=== PATIENT | male | born 1945 | race Caucasian/White ===

== ENCOUNTER 2023-05-03 06:19 | Day surgery (SDC) | payer OTHER ==
[2023-04-29 10:25] LABS: Absolute Basophils 0.1 K/uL (0-0.5); Absolute Lymphocytes (CBC) 0.4 K/uL (0.7-4.9); Basophils % 0.7 % (0-1.3); Eosinophils % 0.5 % (0-4.4); Hematocrit 43.5 % (39.6-49.0); Hemoglobin 14.7 g/dL (13.6-17.9); Lymphocytes % 5.6 % (15.3-44.8); MCV 102.8 fL (80-100); MPV 7.9 fL (7.6-11.3); Platelets 182 thou/uL (152-406); RBC Red Blood Cell Count 4.23 M/uL (4.33-5.43)
[2023-04-29 10:38] LABS: Protime INR 1.84
[2023-04-29 10:45] LABS: Anion Gap 9.3 mEq/L (5.0-15.0)
[2023-04-29 10:46] LABS: Potassium 5.3 mEq/L (3.5-5.1)
--- NOTE | 2023-04-29 11:47 | RAD REPORT ---
EXAM DESCRIPTION: RAD - Chest Pa And Lat (2 Views) - 04/29/2023 9:31 am CLINICAL HISTORY: Pre op pending carotid angiogram. Hypertension COMPARISON: Chest Single View dated 05/18/2016; Chest Pa And Lat (2 Views) dated 02/12/2016; CHEST PA AND LAT 2 VIEW dated 05/08/2014; CHEST SINGLE VIEW dated 04/30/2014 TECHNIQUE: PA and lateral views of the chest were obtained. FINDINGS: The lungs are clear. Heart size is normal and central vasculature is within normal limits. No pleural effusion or pneumothorax seen. No acute bony finding noted. IMPRESSION: No acute cardiopulmonary process.
--- NOTE | 2023-04-29 14:24 | EKG ---
Test Date: 2023-04-29 Test Time: 10:31:17 [place]: [place] MEASUREMENT RESULTS: Intervals: Rate: 70 NM: QRSD: 82 QT: 400 QTc: 432 [place]: P: NM: QRS: 50 T: -30 INTERPRETIVE STATEMENTS: Atrial fibrillation Septal infarct, age undetermined Abnormal ECG Compared to ECG 05/19/2016 07:04:40 Myocardial infarct finding now present Ventricular premature complex(es) no longer present Electronically Signed On 04-29-23 14:24:06 SENIOR CLERK by Santosh Camara
[2023-05-03 07:08] LABS: Protime INR 1.16
[2023-05-03] MEDS ORDERED: NA CHLORIDE 0.9% 500 ML ONE (07:12)
[2023-05-03] MEDS ORDERED: HEPA 1000U/500MLS 2,000 UNIT/1,000 ML BAG IV ONE (07:45)
[2023-05-03] MEDS ORDERED: LIDOCAINE 1% 20 ML MDV ONE (07:45)
[2023-05-03] MEDS ORDERED: FENTANYL CITR 100 MCG/2 ML ONE (07:46)
[2023-05-03] MEDS ORDERED: MIDAZOLAM HCL 2 MG/2 ML INJ ONE (07:46)
[2023-05-03 11:16] VITALS: O2SAT 100
[2023-05-03 11:42] VITALS: BP 170/74
== END 2023-05-03 11:35 | disposition home or self-care (01) ==
LOC: CCL 06:19
PROVIDERS: ATTEND Internal Medicine
DX: I65.21 Occlusion and stenosis of right carotid artery (principal); I48.91 Unspecified atrial fibrillation; I10 Essential (primary) hypertension; E78.5 Hyperlipidemia, unspecified; Z87.891 Personal history of nicotine dependence; Z79.01 Long term (current) use of anticoagulants; Z79.899 Other long term (current) drug therapy
CPT/HCPCS: 93005; 85025; 80048; 36415 ×2; 85610 ×2; 85730 ×2; 71046; 36222; 76937; C1893; J2001; J2250; J3010; J7040; 99152; 99153

== ENCOUNTER 2024-05-26 01:56 | Emergency (ER) | payer OTHER ==
--- OUTSIDE RECORDS SUMMARY | 2024-05-26 02:00 | XMS REPORT | Continuity of Care Document ---
Author Name Unknown Address [address] [facility]. [address] [place] [address] Organization [facility] [place] Address [address] [facility] [address] [place] [address] Care Team Providers Care Service Or Work Dispatcher Chief Name Role Phone [phone] Primary Care Physician Monroe Holguin Attending Clinician Monroe Stallworth Admitting Clinician Jayson andrade Payers Payer Name Policy Type Policy Number Effective Date Expirati on Date Source MEDICARE PART A AND B [id number] 2008 00:00:00 FOR LIFE [id number] 2009 00:00:00 Problems Condition Name Condition Details Condition Category Status Onset Date Resolution Date Last Treatment Date Treating Clinician Comments Source Amnesia (finding) Amnesia (finding) Active Problem 07/11/2020 [facility] Problem Active 2020-07-11 01:48:15 [facility] Atrial fibrillati on (disorder) Atrial fibrillati on (disorder) Active Problem 07/11/2020 [facility] Problem Active 2020-07-11 01:48:15 Mem[facility] jessica Duarte Cervical spondylosi s (disorder) Cervical spondylosi s (disorder) Active Problem 07/11/2020 [facility] Problem Active 2020-07-11 01:48:15 Mem[facility] jessica Duarte Hypertensi ve disorder, systemic arterial (disorder) Hypertensi ve disorder, systemic arterial (disorder) Active Problem 07/11/2020 [facility] Problem Active 2020-07-11 01:48:15 Memoria jessica Duarte Hyperlipid emia (disorder) Hyperlipid emia (disorder) Active Problem 07/11/2020 [facility] Problem Active 2020-07-11 01:48:15 Pretty Duarte Paresthesi a (finding) Paresthesi a (finding) Active Problem 07/11/2020 [facility] Problem Active 2020-07-11 01:48:15 Pretty Duarte Simple obesity (disorder) Simple obesity (disorder) Active Problem 07/11/2020 [facility] Problem Active 2020-07-11 01:48:15 Pretty Duarte Peripheral nerve disease (disorder) Peripheral nerve disease (disorder) Active Problem 07/11/2020 [facility] Problem Active 2020-07-11 01:48:15 Pretty Duarte Allergies, Adverse Reactions, Alerts Allergy Name Allergy Type Status Severity Reaction(s) Onset Date Inactive Date Treating Clinician Comments Source No Known Allergie s DA Active U 05-19 00:00: 00 [facility] Social History Social Habit Start Date Stop Date Quantity Comments Source Social History 2019-11-20 14:52:45 2019-11-20 14:52:[facility] Ordered Medication Name Filled Medication Name Start Date Stop Date Current Medication? Ordering Clinician Indication Dosage Frequency Signature (SIG) Comments Components Source Vitamin B12 07-08 14:01: 00 Yes 0 Refill(s) Pretty Duarte Thyroxine 2019-02 00:03: 00 Yes Daily, 0 Refill(s) Pretty Duarte atorvastati n-ezetimibe 40 mg-10 mg oral tablet 11-19 13:54: 00 Yes 0 Refill(s) Pretty Duarte valsartan 160 MG Oral Tablet [Diovan] 11-19 13:54: 00 Yes 160 mg = 1 tab, PO, Daily, 0 Refill(s) Pretty Duarte allopurinol 300 mg oral tablet 11-19 13:54: 00 Yes 300 mg = 1 tab, PO, Daily, 0 Refill(s) Pretty Duarte rivaroxaban 20 MG Oral Tablet [Xarelto] 11-19 13:54: 00 Yes 20 mg = 1 tab, PO, QPM, 0 Refill(s) Pretty Duarte 24 HR Metoprolol Tartrate 50 MG Extended Release Tablet [Toprol] 11-19 13:54: 00 Yes 50 mg = 1 tab, PO, Daily, 0 Refill(s) Pretty Duarte Vital Signs Vital Name Observation Time Observation Value Comments S ource Diastolic (mm Hg) 2020-07-08 14:00:00 [facility] Heart Rate 2020-07-08 14:00:00 [facility] Respitory Rate 2020-07-08 14:00:00 [facility] Height 2020-07-08 14:00:00 170.18 cm [facility] Weight 2020-07-08 14:00:00 [facility] BMI Calculated 2020-07-08 14:00:00 [facility] Systolic (mm Hg) 2020-07-08 14:00:00 [facility] Systolic (mm Hg) 2020-01-08 14:24:00 [facility] Diastolic (mm Hg) 2020-01-08 14:24:00 [facility] [place] Heart Rate 2020-01-08 14:24:00 [facility] [place] Respitory Rate 2020-01-08 14:24:00 [facility] Height 2020-01-08 14:24:00 172.72 cm [facility] [place] Weight 2020-01-08 14:24:00 [facility] [place] BMI Calculated 2020-01-08 14:24:00 [facility] [place] Systolic (mm Hg) 2019-12-18 14:04:00 [facility] Diastolic (mm Hg) 2019-12-18 14:04:00 [facility] [place] Heart Rate 2019-12-18 14:04:00 [facility] Respitory Rate 2019-12-18 14:04:00 [facility] [place] Height 2019-12-18 14:04:00 172.72 cm [facility] [place] Weight 2019-12-18 14:04:00 [facility] [place] BMI Calculated 2019-12-18 14:04:00 [facility] Height 2019-11-20 14:44:00 172.72 cm [facility] Weight 2019-11-20 14:44:00 [facility] BMI Calculated 2019-11-20 14:44:00 [facility] [place] Procedures Procedure Date / Time Performed Performing Clinicia n Source [id number] 2023-05-24 00:00:[address] [facility] [id number] 2023-05-23 00:00:[address] [facility] Encounters Start Date/Time End Date/Time Encounter Type Admission Type Attending Clinicians Care Facility Care Department Encounter ID Source 2021-04-02 18:19:41 Outpatient MDA MDA [id number] MD Mary quinonez 2021-04-02 18:19:41 Outpatient MDA MDA [id number] MD Mary quinonez 2023-05-23 19:56:00 2023-05-25 10:18:00 Inpatient Monroe Flannery HCACL INTE [id number] [facility] Results Test Description Test Time Test Comments Results Result Co mments Source BASIC METABOLIC [id number] 07:02:00* Test Item Value Reference Range Interpretation Comme nts SODIUM (test code = NA) 136 mEq/L 134-147 N POTASSIUM (test code = K) 4.0 mEq/L 3.4-5.0 N CHLORIDE (test code = CL) 105 mEq/L 100-108 N CARBON DIOXIDE (test code = CO2) 23 mEq/l 21-33 N ANION GAP (test code = GAP) 12 0-20 N GLUCOSE (test code = GLU) 97 mg/dL 77-141 BLOOD UREA NITROGEN (test code = BUN) 19 mg/dL 7-25 N GLOMERULAR FILTRATION RATE (test code = GFR) 76.1 70-80 N The Glomerular Filtration Rate is a calculated parameterbased on serum Creatinine, patient age and sex. GFR valuesless than 60 mL/min/1.73 square meters are indicative ofChronic Kidney Disease. Values less than 15 mL/min/1.73square meters indicate Kidney failure. The calculation forGFR is based on the CKD-EPI (2020) calculation. This formulais race indifferent and is the recommended formula for GFRby the National Kidney Foundation for Adults.The GFR will not calculate if the sex is unknown or if thepatient's age is <18 years. CREATININE (test code = CREAT) 1.0 mg/dL 0.6-1.3 N CALCIUM (test code = CA) 8.5 mg/dL 8.0-10.5 N [id number] 07:02:00* Test Item Value Reference Range Interpretation Comme nts PHOSPHOROUS (test code = PHOS) 3.6 MG/DL 2.5-4.9 N [id number] 07:02:00* Test Item Value Reference Range Interpretation Comme nts MAGNESIUM (test code = MAG) 1.83 mg/dL 1.6-2.6 N THYROID STIMULATING [id number] 07:02:00* Test Item Value Reference Range Interpretation Comme nts THYROID STIMULATING HORMONE (test code = TSH) 2.89 0.42-5.47 N Result s in dawna-International Units/mL CALCIUM [id number] 07:02:00* Test Item Value Reference Range Interpretation Comme nts CALCIUM IONIZED (test code = TIN) 1.20 MMOL/L 1.09-1.30 N [id number] 06:12:00* Test Item Value Reference Range Interpretation Comme nts HGBA1C% (test code = HGBA1C%) 5.3 %A1C 4.8-6.0 N CBC W/AUTO [id number] 05:56:00* Test Item Value Reference Range Interpretation Comme nts WHITE BLOOD CELL (test code = WBC) 11.1 x10 3/uL 4.5-11.0 H RED BLOOD CELL (test code = RBC) 3.74 x10 6/uL 4.00-5.60 L HEMOGLOBIN (test code = HGB) 12.7 g/dL 12.5-16.9 N HEMATOCRIT (test code = HCT) 36.4 % 37.5-50.7 L MEAN CELL VOLUME (test code = MCV) 97.3 fL 81.0-99.0 N MEAN CELL HGB (test code = MCH) 34.0 pg 27.0-33.0 H MEAN CELL HGB CONCETRATION (test code = MCHC) 34.9 g/dL 33.0-37.0 N RED CELL DISTRIBUTION WIDTH CV (test code = RDW) 12.6 % 11.5-14.5 N RED CELL DISTRIBUTION WIDTH SD (test code = RDW-SD) 45.0 fL 37.0-54.0 N PLATELET COUNT (test code = PLT) 167 x10 3/uL 150-400 N MEAN PLATELET VOLUME (test c ode = MPV) 9.9 fL 7.0-9.0 H NEUTROPHIL % (test code = NT%) 84.7 % 56.0-77.0 H IMMATURE GRANULOCYTE % (test code = IG%) 0.3 % 0.0-2.0 N LYMPHOCYTE % (test code = LY%) 4.6 % 14.0-32.0 L MONOCYTE % (test code = MO%) 10.2 % 4.8-9.0 H EOSINOPHIL % (test code = EO%) 0.1 % 0.3-3.7 L BASOPHIL % (test code = BA%) 0.1 % 0.0-2.0 N NUCLEATED RBC % (test code = NRBC%) 0.0 % 0-0 N NEUTROPHIL # (test code = NT#) 9.37 x10 3/uL 2.0-7.6 H IMMATURE GRANULOCYTE # (test code = IG#) 0.03 x10 3/uL 0.00-0.03 N LYMPHOCYTE # (test code = LY#) 0.51 x10 3/uL 1.0-3.8 L MONOCYTE # (test code = MO#) 1.13 x10 3/uL 0.1-0.8 H EOSINOPHIL # (test code = EO#) 0.01 x10 3/uL 0.0-0.2 N BASOPHIL # (test code = BA#) 0.01 x10 3/uL 0.0-0.2 N NUCLEATED RBC # (test code = NRBC#) 0.00 x10 3/uL 0.0-0.1 N BASIC METABOLIC [id number] 12:03:00* Test Item Value Reference Range Interpretation Comme nts SODIUM (test code = NA) 138 mEq/L 134-147 N POTASSIUM (test code = K) 3.7 mEq/L 3.4-5.0 N CHLORIDE (test code = CL) 107 mEq/L 100-108 N CARBON DIOXIDE (test code = CO2) 21 mEq/l 21-33 N ANION GAP (test code = GAP) 14 0-20 N GLUCOSE (test code = GLU) 143 mg/dL 77-141 H BLOOD UREA NITROGEN (test code = BUN) 13 mg/dL 7-25 N GLOMERULAR FILTRATION RATE (test code = GFR) 86.3 70-80 H The Glomerular Filtration Rate is a calculated parameterbased on serum Creatinine, patient age and sex. GFR valuesless than 60 mL/min/1.73 square meters are indicative ofChronic Kidney Disease. Values less than 15 mL/min/1.73square meters indicate Kidney failure. The calculation forGFR is based on the CKD-EPI (2021) calculation. This formulais race indifferent and is the recommended formula for GFRby the National Kidney Foundation for Adults.The GFR will not calculate if the sex is unknown or if thepatient's age is <18 years. CREATININE (test code = CREAT) 0.9 mg/dL 0.6-1.3 N CALCIUM (test code = CA) 8.9 mg/dL 8.0-10.5 N HGB [id number] 11:45:00* Test Item Value Reference Range Interpretation Comme nts HEMOGLOBIN (test code = HGB) 14.0 g/dL 12.5-16.9 N HEMATOCRIT (test code = HCT) 40.8 % 37.5-50.7 N BASIC METABOLIC [id number] 09:55:00* Test Item Value Reference Range Interpretation Comme nts SODIUM (test code = NA) 138 mEq/L 134-147 N POTASSIUM (test code = K) 3.8 mEq/L 3.4-5.0 N CHLORIDE (test code = CL) 107 mEq/L 100-108 N CARBON DIOXIDE (test code = CO2) 19 mEq/l 21-33 L ANION GAP (test code = GAP) 16 0-20 N GLUCOSE (test code = GLU) 156 mg/dL 77-141 H BLOOD UREA NITROGEN (test code = BUN) 12 mg/dL 7-25 N GLOMERULAR FILTRATION RATE (test code = GFR) 86.3 70-80 H The Glomerular Filtration Rate is a calculated parameterbased on serum Creatinine, patient age and sex. GFR valuesless than 60 mL/min/1.73 square meters are indicative ofChronic Kidney Disease. Values less than 15 mL/min/1.73square meters indicate Kidney failure. The calculation forGFR is based on the CKD-EPI (202) calculation. This formulais race indifferent and is the recommended formula for GFRby the National Kidney Foundation for Adults.The GFR will not calculate if the sex is unknown or if thepatient's age is <18 years. CREATININE (test code = CREAT) 0.9 mg/dL 0.6-1.3 N CALCIUM (test code = CA) 8.4 mg/dL 8.0-10.5 N HGB [id number] 09:36:00* Test Item Value Reference Range Interpretation Comme nts HEMOGLOBIN (test code = HGB) 13.9 g/dL 12.5-16.9 N HEMATOCRIT (test code = HCT) 40.1 % 37.5-50.7 N [id number] 08:00:00* Test Item Value Reference Range Interpretation Comme nts ACT-ISTAT (test code = ACTI) 336 SEC 74-137 H Performed by cer bernard gripper machine operator at [facility] BASIC METABOLIC [id number] 01:49:00* Test Item Value Reference Range Interpretation Comme nts SODIUM (test code = NA) 138 mEq/L 134-147 N POTASSIUM (test code = K) 3.7 mEq/L 3.4-5.0 N CHLORIDE (test code = CL) 106 mEq/L 100-108 N CARBON DIOXIDE (test code = CO2) 23 mEq/l 21-33 N ANION GAP (test code = GAP) 13 0-20 N GLUCOSE (test code = GLU) 111 mg/dL 77-141 N BLOOD UREA NITROGEN (test code = BUN) 11 mg/dL 7-25 N GLOMERULAR FILTRATION RATE (test code = GFR) 89.5 70-80 H The Glomerular Filtration Rate is a calculated parameterbased on serum Creatinine, patient age and sex. GFR valuesless than 60 mL/min/1.73 square meters are indicative ofChronic Kidney Disease. Values less than 15 mL/min/1.73square meters indicate Kidney failure. The calculation forGFR is based on the CKD-EPI (202) calculation. This formulais race indifferent and is the recommended formula for GFRby the National Kidney Foundation for Adults.The GFR will not calculate if the sex is unknown or if thepatient's age is <18 years. CREATININE (test code = CREAT) 0.8 mg/dL 0.6-1.3 N CALCIUM (test code = CA) 9.3 mg/dL 8.0-10.5 N [id number] 01:49:00* Test Item Value Reference Range Interpretation Comme [facility] PHOSPHOROUS (test code = PHOS) 3.3 MG/DL 2.5-4.9 N [id number] 01:49:00* Test Item Value Reference Range Interpretation Comme [facility] MAGNESIUM (test code = MAG) 1.69 mg/dL 1.6-2.6 N CALCIUM [id number] 01:49:00* Test Item Value Reference Range Interpretation Comme [facility] CALCIUM IONIZED (test code = TIN) 1.18 MMOL/L 1.09-1.30 N PROTHROMBIN [id number] 01:33:00* Test Item Value Reference Range Interpretation Comme [facility] PROTHROMBIN TIME PATIENT (test code = PTP) 12.4 SECONDS 9.3-12.9 N INTERNATIONAL NORMAL RATIO (test code = INR) 1.1 0.8-1.2 N TARGET INR BY INDICATION Indication INR1. Prophylaxis of venous thrombosis 2.0 - 3.0 (orthopedic surgery), Prophylaxis of venous thrombosis (other than high-risk surgery), Treatment of Deep Vein Thrombosis/Pulmonary Embolism, Prevention of systemic embolism - Tissue heart valves, Acute Myocardial Infarction (to prevent systemic embolism), Valvular heart disease, Atrial Fibrillation, Bileaflet mechanical valve in aortic position.2. Mechanical prosthetic valves (high risk), 2.5 - 3.5 Presence of Lupus Anticoagulant or Antiphospholipid Antibodies, Prevention of systemic embolism - Acute Myocardial Infarction (to prevent recurrent infarct). THROMBOPLASTIN TIME [id number] 01:33:00* Test Item Value Reference Range Interpretation [facility] PARTIAL (test code = PTT) 33.4 Seconds 25.0-39.5 N Therapeutic Rang e: 50.4 - 88.3 Seconds Effective 06/13/2018 CBC W/AUTO [id number] 01:24:00* Test Item Value Reference Range Interpretation Comme [facility] WHITE BLOOD CELL (test code = WBC) 9.3 x10 3/uL 4.5-11.0 N RED BLOOD CELL (test code = RBC) 4.39 x10 6/uL 4.00-5.60 N HEMOGLOBIN (test code = HGB) 14.8 g/dL 12.5-16.9 N HEMATOCRIT (test code = HCT) 42.7 % 37.5-50.7 N MEAN CELL VOLUME (test code = MCV) 97.3 fL 81.0-99.0 N MEAN CELL HGB (test code = MCH) 33.7 pg 27.0-33.0 H MEAN CELL HGB CONCETRATION (test code = MCHC) 34.7 g/dL 33.0-37.0 N RED CELL DISTRIBUTION WIDTH CV (test code = RDW) 12.3 % 11.5-14.5 N RED CELL DISTRIBUTION WIDTH SD (test code = RDW-SD) 44.1 fL 37.0-54.0 N PLATELET COUNT (test code = PLT) 193 x10 3/uL 150-400 N MEAN PLATELET VOLUME (test c ode = MPV) 9.8 fL 7.0-9.0 H NEUTROPHIL % (test code = NT%) 85.6 % 56.0-77.0 H IMMATURE GRANULOCYTE % (test code = IG%) 0.2 % 0.0-2.0 N LYMPHOCYTE % (test code = LY%) 5.2 % 14.0-32.0 L MONOCYTE % (test code = MO%) 8.2 % 4.8-9.0 N EOSINOPHIL % (test code = EO%) 0.4 % 0.3-3.7 N BASOPHIL % (test code = BA%) 0.4 % 0.0-2.0 N NUCLEATED RBC % (test code = NRBC%) 0.0 % 0-0 N NEUTROPHIL # (test code = NT#) 7.93 x10 3/uL 2.0-7.6 H IMMATURE GRANULOCYTE # (test code = IG#) 0.02 x10 3/uL 0.00-0.03 N LYMPHOCYTE # (test code = LY#) 0.48 x10 3/uL 1.0-3.8 L MONOCYTE # (test code = MO#) 0.76 x10 3/uL 0.1-0.8 N EOSINOPHIL # (test code = EO#) 0.04 x10 3/uL 0.0-0.2 N BASOPHIL # (test code = BA#) 0.04 x10 3/uL 0.0-0.2 N NUCLEATED RBC # (test code = NRBC#) 0.00 x10 3/uL 0.0-0.1 N GLUCOSE [id number] 21:01:00* Test Item Value Reference Range Interpretation Comme nts GLUCOSE BEDSIDE (test code = GLUBED) 115 MG/DL 70-110 H Performed by keely wagner gripper machine operator at [facility] - XR CHEST 1 [id number] 11:11:00 [facility] 1945 Sex: M FAX: Monroe Bentley MD [phone] [place]: St: REG Name: OSIEL RENO [facility] : 1945 Age/S: 78/M [address] [place] [address] Unit #: [id number] Loc: [place] [address] Phys: Monroe Lobo MD Acct: [id number] Dis Date: Status: REG [facility] PHONE #: [phone] Exam Date: 05/23/2023 1022 FAX #: Reason: PRE PROCEDURE EXAMS: CPT CODE: [id number] XR CHEST 1 V 80515 Clinical Information: Preprocedure evaluation. Dictation Location: A 1 COMPARISON: No prior. FINDINGS: Portable frontal view of the chest taken at 1022 hours semierect shows monitoring electrodes overlying the chest wall. Normal heart size and pulmonary vessels with clear lungs. Mild aortic tortuosity. Degenerative change in the spine and shoulders. No acute bone findings. IMPRESSION: No active disease. at 1111 Reported and signed by: Jamil Dumont M.D. CC: Monroe Lobo MD Technologist: RT Aristeo(R) Trnscrd Date/Time/By: 05/23/2023 (1111) : By: [email or web address] Orig Print D/T: S: 05/23/2023 (1114) PAGE 1 Signed ReportCOMPREHENSIVE METABOLIC [id number] 11:10:00* Test Item Value Reference Range Interpretation Comme nts SODIUM (test code = NA) 140 mEq/L 134-147 N POTASSIUM (test code = K) 4.5 mEq/L 3.4-5.0 N CHLORIDE (test code = CL) 107 mEq/L 100-108 N CARBON DIOXIDE (test code = CO2) 28 mEq/l 21-33 N ANION GAP (test code = GAP) 10 0-20 N GLUCOSE (test code = GLU) 108 mg/dL 77-141 N BLOOD UREA NITROGEN (test code = BUN) 11 mg/dL 7-25 N GLOMERULAR FILTRATION RATE (test code = GFR) 76.1 70-80 N The Glomerular Filtration Rate is a calculated parameterbased on serum Creatinine, patient age and sex. GFR valuesless than 60 mL/min/1.73 square meters are indicative ofChronic Kidney Disease. Values less than 15 mL/min/1.73square meters indicate Kidney failure. The calculation forGFR is based on the CKD-EPI (202) calculation. This formulais race indifferent and is the recommended formula for GFRby the National Kidney Foundation for Adults.The GFR will not calculate if the sex is unknown or if thepatient's age is <18 years. CREATININE (test code = CREAT) 1.0 mg/dL 0.6-1.3 N TOTAL PROTEIN (test code = PROT) 6.9 g/dL 6.4-8.2 N ALBUMIN (test code = ALB) 3.80 g/dL 3.4-5.0 N CALCIUM (test code = CA) 9.4 mg/dL 8.0-10.5 N BILIRUBIN TOTAL (test code = BILT) 1.00 mg/dL 0.0-1.0 N SGOT/AST (test code = AST) 52 IUnit/L 8-34 H SGPT/ALT (test code = ALT) 43 IUnit/L 10-49 N ALKALINE PHOSPHATASE TOTAL (test code = ALKP) 74 IUnit/L 20-125 N LIPID PROFILE (CORONARY RISK)2023-05-23 11:10:00* Test Item Value Reference Range Interpretation Comme nts TRIGLYCERIDES (test code = TRIG) 77 mg/dL 40-150 N CHOLESTEROL (test code = CHOL) 157 mg/dL <200 CHOLESTEROL/HDL RATIO (test code = CHOLHDL) 2.48 RATIO 3.43-4.97 L RISK ASSOCIATED WITH CHOL/HDL RATIOS: RISK MALE FEMALE1/2 AVERAGE 3.43 3.27AVERAGE 4.97 4.442X AVERAGE 9.55 7.053X AVERAGE 23.39 11.04 NOTE THAT THE REFERENCE VALUE IS RELATEDTO RISK LEVELS RECOMMENDED BY THE NATL.HEART, LUNG, AND BLOOD INST. HDL CHOLESTEROL (test code = HDL) 63.2 MG/DL 40-60 H HDL Interpreta tion < 40.0 mg/dL Low (undesirable, high risk)> 60.0 mg/dL High (desirable, low risk) Reference interval for healthy adults was established by theNational Cholesterol Education Program (NCEP). LIPOPROTEIN LDL (test code = LDL) 83.0 mg/dL 0-100 N <100 [id number] 0-129 NEAR OPTIMAL/ABOVE [id number] HIGH>LN=469 VERY HIGH*Guidelines provided by the National Cholesterol EducationProgram Adult Treatment Panel III PROTHROMBIN [id number] 10:40:00* Test Item Value Reference Range Interpretation Comme nts PROTHROMBIN TIME PATIENT (test code = PTP) 12.4 SECONDS 9.3-12.9 N INTERNATIONAL NORMAL RATIO (test code = INR) 1.1 0.8-1.2 N TARGET INR BY INDICATION Indication INR1. Prophylaxis of venous thrombosis 2.0 - 3.0 (orthopedic surgery), Prophylaxis of venous thrombosis (other than high-risk surgery), Treatment of Deep Vein Thrombosis/Pulmonary Embolism, Prevention of systemic embolism - Tissue heart valves, Acute Myocardial Infarction (to prevent systemic embolism), Valvular heart disease, Atrial Fibrillation, Bileaflet mechanical valve in aortic position.2. Mechanical prosthetic valves (high risk), 2.5 - 3.5 Presence of Lupus Anticoagulant or Antiphospholipid Antibodies, Prevention of systemic embolism - Acute Myocardial Infarction (to prevent recurrent infarct). CBC W/AUTO [id number] 10:37:00* Test Item Value Reference Range Interpretation Comme nts WHITE BLOOD CELL (test code = WBC) 7.3 x10 3/uL 4.5-11.0 N RED BLOOD CELL (test code = RBC) 4.24 x10 6/uL 4.00-5.60 N HEMOGLOBIN (test code = HGB) 14.2 g/dL 12.5-16.9 N HEMATOCRIT (test code = HCT) 42.5 % 37.5-50.7 N MEAN CELL VOLUME (test code = MCV) 100.2 fL 81.0-99.0 H MEAN CELL HGB (test code = MCH) 33.5 pg 27.0-33.0 H MEAN CELL HGB CONCETRATION (test code = MCHC) 33.4 g/dL 33.0-37.0 N RED CELL DISTRIBUTION WIDTH CV (test code = RDW) 12.5 % 11.5-14.5 N RED CELL DISTRIBUTION WIDTH SD (test code = RDW-SD) 46.4 fL 37.0-54.0 N PLATELET COUNT (test code = PLT) 197 x10 3/uL 150-400 N MEAN PLATELET VOLUME (test c ode = MPV) 9.7 fL 7.0-9.0 H NEUTROPHIL % (test code = NT%) 82.6 % 56.0-77.0 H IMMATURE GRANULOCYTE % (test code = IG%) 0.1 % 0.0-2.0 N LYMPHOCYTE % (test code = LY%) 6.3 % 14.0-32.0 L MONOCYTE % (test code = MO%) 8.9 % 4.8-9.0 N EOSINOPHIL % (test code = EO%) 1.4 % 0.3-3.7 N BASOPHIL % (test code = BA%) 0.7 % 0.0-2.0 N NUCLEATED RBC % (test code = NRBC%) 0.0 % 0-0 N NEUTROPHIL # (test code = NT#) 6.00 x10 3/uL 2.0-7.6 N IMMATURE GRANULOCYTE # (test code = IG#) 0.01 x10 3/uL 0.00-0.03 N LYMPHOCYTE # (test code = LY#) 0.46 x10 3/uL 1.0-3.8 L MONOCYTE # (test code = MO#) 0.65 x10 3/uL 0.1-0.8 N EOSINOPHIL # (test code = EO#) 0.10 x10 3/uL 0.0-0.2 N BASOPHIL # (test code = BA#) 0.05 x10 3/uL 0.0-0.2 N NUCLEATED RBC # (test code = NRBC#) 0.00 x10 3/uL 0.0-0.1 N Notes Date/Time Note Provider Source 2023-05-25 08:43:00 [facility] ([facility]) Discharge Summary REPORT#:[id number] REPORT STATUS: Signed REPORT INITIALIZATION DATE:05/25/23 TIME: 08 PATIENT: OSIEL RENO UNIT #: [id number] ROOM/BED: [place] [id number] : [birth year] AGE: 78 SEX: M ATTEND: Monroe Lobo MD ADM AUTHOR: Jolly Yanez KELP GATHERER REPT SERVICE DT/TIME: 05/25/23 0843 * ALL edits or amendments must be made on the electronic/computer document * PCP PCP Discharge to: home General Information Discharge date: 05/28/23 Admission diagnosis: Carotid Stenosis Discharge diagnosis: Right CEA Hospital course: 78 y/o male presents with hx of carotid stenosis, atrial fibrillation on Xarelto , HTN, HLD. Patient is status post Right CEA, and has recovered without complication. NENA drain with minimal output and dc'd- patient tolerated well. -DC home, to the care of his son -continue aspirin, Xarelto, Statin -Discharge intructions provided -patient to follow up in post op clinic in 1-2 weeks Patient seen and examined by Dr. Lobo Consultants: critical/community assistant, hospitalist, thoracic surgery Med Rec PCP PCP: PCP: No Primary or Family Physician Med Rec Discharge meds: Continue taking these medications: RIVAROXABAN (XARELTO) (Unknown Strength) TAB Unknown Dose ORAL DAILY. HYDROCHLOROTHIAZIDE (HYDRODIURIL) 25 MG TAB 25 MILLIGRAM ORAL DAILY. LEVOTHYROXINE (SYNTHROID) 75 MCG TAB 75 MICROGRAM ORAL DAILY. MAGNESIUM OXIDE (MAG-OXIDE) 400 MG TAB 400 MILLIGRAM ORAL DAILY. CHOLECALCIFEROL (VITAMIN D3) (VITAMIN D3) 25 MCG (1,000 UNIT) TAB 1,000 UNITS ORAL DIRECTED Comments: PT TAKES 3 TIMES WEEKLY CETIRIZINE (CETIRIZINE) 10 MG TAB 10 MILLIGRAM ORAL DAILY. SIMVASTATIN (SIMVASTATIN) 80 MG TAB 80 MILLIGRAM ORAL DAILY. Start taking the following new medications: ASPIRIN EC (ECOTRIN) 81 MG TAB.EC 81 MILLIGRAM ORAL DAILY. Qty = 90 Refills = 3 Objective VS/I O Last Documented: Result Date Time B/P 145/75 05/25 627 B/P Mean 101 05/25 627 Pulse Ox 100 05/25 627 Pulse 62 05/25 627 Resp 15 05/25 627 Temp 97.5 05/24 0522 O2 Delivery Room air 05/24 2023 O2 Flow Rate 5 05/23 0920 24 hour I O ending at 0700: 05/24 0700 05/23 1900 Intake Total 730.00 290.00 Output Total 210 70 Balance 520.00 220.00 Intake, IV 30.00 50.00 Intake, Oral 700 240 Output, 10 20 Drainage Output, Urine 200 50 Patient 76.4 kg Weight Weight Standing scale Measurement Method PATIENT WEIGHT: Weight (lb): 168 Weight (oz): 6.93 Weight (kg): 76.400 General appearance: alert, awake, oriented, no acute distress Neck: non-tender Cardiovascular: normal capillary refill Respiratory: clear to auscultation, no distress GI: soft, non-tender Genitourinary: no bladder distension, no flank pain Neuro/DEBURRER: alert, oriented X 3 Wound/incision: Location: right neck incision site, CDI Psychiatry: no hallucinations, normal affect, normal judgment/insight Results Findings/Data: Laboratory Tests: 05/24 05/24 05/23 05/23 0413 0413 1125 0911 Chemistry Sodium (134 - 147 mEq/L) 136 138 138 Potassium (3.4 - 5.0 mEq/L) 4.0 3.7 3.8 Chloride (100 - 108 mEq/L) 105 107 107 Carbon Dioxide (21 - 33 mEq/l) 23 21 19 L Anion Gap (0 - 20) 12 14 16 BUN (7 - 25 mg/dL) 19 13 12 Creatinine (0.6 - 1.3 mg/dL) 1.0 0.9 0.9 Glomerular Filtr Rate (70 - 80) 76.1 86.3 H 86.3 H Glucose (77 - 141 mg/dL) 97 143 H 156 H Hemoglobin A1c (4.8 - 6.0 %A1C) 5.3 Calcium (8.0 - 10.5 mg/dL) 8.5 8.9 8.4 Ionized Calcium Jerel (1.09 - 1.30 MMOL/L) 1.20 Phosphorus (2.5 - 4.9 MG/DL) 3.6 Magnesium (1.6 - 2.6 mg/dL) 1.83 TSH (0.42 - 5.47) 2.89 Hematology WBC (4.5 - 11.0 x10 3/uL) 11.1 H RBC (4.00 - 5.60 x10 6/uL) 3.74 L Hgb (12.5 - 16.9 g/dL) 12.7 14.0 13.9 Hct (37.5 - 50.7 %) 36.4 L 40.8 40.1 MCV (81.0 - 99.0 fL) 97.3 MCH (27.0 - 33.0 pg) 34.0 H MCHC (33.0 - 37.0 g/dL) 34.9 RDW (11.5 - 14.5 %) 12.6 Plt Count (150 - 400 x10 3/uL) 167 MPV (7.0 - 9.0 fL) 9.9 H Neut % (Auto) (56.0 - 77.0 %) 84.7 H Lymph % (Auto) (14.0 - 32.0 %) 4.6 L [place] % (Auto) (4.8 - 9.0 %) 10.2 H Eos % (Auto) (0.3 - 3.7 %) 0.1 L Baso % (Auto) (0.0 - 2.0 %) 0.1 Neut # (Auto) (2.0 - 7.6 x10 3/uL) 9.37 H Lymph # (Auto) (1.0 - 3.8 x10 3/uL) 0.51 L [place] # (Auto) (0.1 - 0.8 x10 3/uL) 1.13 H Eos # (Auto) (0.0 - 0.2 x10 3/uL) 0.01 Baso # (Auto) (0.0 - 0.2 x10 3/uL) 0.01 Abs Immat Gran (auto) (0.00 - 0.03 x10 3/uL) 0.03 Immature Gran % (0.0 - 2.0 %) 0.3 Nucleated RBC % (0 - 0 %) 0.0 Nucleated RBCs # (Man) (0.0 - 0.1 x10 3/uL) 0.00 Discharge Instructions PCP PCP: PCP: No Primary or Family Physician )( Discharge to: Home/Self Care Discharge Instructions Additional Discharge Routines: Attending Follow-Up, Wound/Dressing Care )( Diet: Resume Home Diet/Feeds )( Activity: Resume Normal Activity, No Driving today )( Wound/dressing care: Clean wound daily, Do not submerge incision, Keep wound clean and dry, OK to shower tomorrow )( Notify PCP of these S/S: Chest Pain, Increased redness, Increased swelling, Increased tenderness/pain, Moderate/large bleeding, Numbness, Pus-like discharge , Red line from wound, Shortness of breath, Temp. 101 or greater Prescriptions: e-prescribe Follow-up Appointments Attending Physician: Attending Physician: Monroe Lobo MD Attending physician follow up timeframe: In 1-2 weeks Special instructions: Dr. Lobo office will call you to schedule your follow up post op appointment in 1-2 weeks. May remove left neck dressing tomorrow, ok to shower tomorrow evening. Leaving incision and puncture open to air, no dressing, no creams, no lotions. Wash with soap and water- pat dry. at [phone] at [phone] RPT #:[id number] END OF REPORT [facility] 2023-05-24 12:00:00 [facility] ([facility]) Critical Care Progress Note REPORT#:[id number] REPORT STATUS: Signed REPORT INITIALIZATION DATE:05/24/23 TIME: 1200 PATIENT: OSIEL RENO UNIT #: [id number] ROOM/BED: [place] [id number] : 43 AGE: 78 SEX: M ATTEND: Monroe Lobo MD ADM AUTHOR: Scarlet Conner REPT SERVICE DT/TIME: 05/24/23 1200 * ALL edits or amendments must be made on the electronic/computer document * Subjective HPI: 78 M presents for an elective carotid endartectomy and has been postponed till tomorrow 05/23. He has been found to have significant stenosis of the right carotid artery. He has history of atrial fibrillation on elliquis, hypothyroid, hypertension, hyperlipidemia. He denies any neurological deficits. Comments: Back to room 330 from PACU. He is s/p R carotid endaterectomy Neuro intact SBP 130s, NSR 70s Sats well on room air, 98% Objective General VS/I O Last Documented: Result Date Time Pulse Ox 100 05/23 0920 B/P 131/59 05/23 0920 O2 Delivery Simple mask 05/23 0920 O2 Flow Rate 5 05/23 0920 Pulse 62 05/23 0920 Resp 16 05/23 0920 Temp 97.0 05/23 0838 B/P Mean 93 05/23 0600 24 hour I O ending at 0700: 05/23 0700 05/22 1900 Intake Total 200 Output Total 500 Balance -300 Intake, Oral 200 Number Voids 2 Output, Urine 500 Patient 78 kg 79.545 kg Weight Weight Bed scale Stated/Reported Measurement Method PATIENT WEIGHT: Weight (lb): 171 Weight (oz): 15.37 Weight (kg): 78.000 Medications: Active Meds + DC'd Last 24 Hrs Aspirin (ASPIRIN) 81 MG DAILY PO Clopidogrel Bisulfate (Plavix) 75 MG DAILY PO Docusate Sodium (COLACE) 100 MG BID PO Simvastatin (SIMVASTATIN) 80 MG DAILY@2100 PO (CAN) Magnesium Sulfate (MAGNESIUM SULFATE 2GM/SWFI 50ML) 50 ML ONCE ONE IV ( UNV) Dexamethasone Sodium Phosphate (DECADRON) 0 .STK-MED ONE .ROUTE (DC) Lidocaine HCl (XYLOCAINE) 0 .STK-MED ONE .ROUTE (DC) Ondansetron HCl (ZOFRAN) 0 .STK-MED ONE .ROUTE (DC) Propofol (DIPRIVAN 200MG/20ML INJECTION) 20 ML .STK-MED ONE IV (DC) Albuterol/Ipratropium (DUONEB) 3 ML RTONCE ONE NEB (DC) Albuterol/Ipratropium (DUONEB) 0 .STK-MED ONE NEB (DC) Acetaminophen (TYLENOL) 650 MG Q4H PRN PRN PO Bisacodyl (DULCOLAX) 10 MG DAILY PRN PRN RECTAL Hydrochlorothiazide (HYDRODIURIL) 25 MG DAILY PO Hydrocodone Bitart/Acetaminophen (NORCO 5/325) 1 TAB Q4H PRN PRN PO Levothyroxine Sodium (LEVOTHYROXINE SODIUM) 50 MCG DAILY IV (DC) Magnesium Hydroxide (MILK OF MAGNESIA) 30 ML Q6H PRN PRN PO Magnesium Oxide (MAG-OX 400) 400 MG DAILY PO Fentanyl Citrate (SUBLIMAZE) 100 MCG PACU Q10MIN PRN PRN IV Fentanyl Citrate (SUBLIMAZE) 50 MCG PACU Q10MIN PRN PRN IV Hydralazine HCl (APRESOLINE) 5 MG PACU Q10MIN PRN PRN IV Hydrocodone Bitart/Acetaminophen (NORCO 5/325) 1 TAB PACU ONCE PO (CKD) Hydromorphone HCl (DILAUDID) 1 MG PACU Q10MIN PRN PRN IV Hydromorphone HCl (DILAUDID) 0.5 MG PACU Q5MIN PRN PRN IV Insulin Human Lispro (HUMALOG) 0 PACU ONCE PRN SUBQ Labetalol HCl (labetalol) 5 MG PACU Q10MIN PRN PRN IV Meperidine HCl (MEPERIDINE HCL/PF) 12.5 MG PACU ONCE PRN IV Morphine Sulfate (morphine SULFATE) 2 MG PACU Q10MIN PRN PRN IV Ondansetron HCl (ZOFRAN) 4 MG PACU ONCE PRN IV Ropivacaine (NAROPIN 0.5% 150 MG/30mL) 150 MG ASDIR PRN LOCAL Tramadol HCl (ULTRAM) 50 MG PACU ONCE PO (CKD) Glycopyrrolate (GLYCOPYRROLATE) 0 .STK-MED ONE .ROUTE (DC) Ketorolac Tromethamine (TORADOL 30 MG) 0 .STK-MED ONE .ROUTE (DC) Neostigmine Methylsulfate (PROSTIGMIN) 0 .STK-MED ONE .ROUTE (DC) Heparin Sodium (HEPARIN SODIUM) 0 .STK-MED ONE .ROUTE (DC) Etomidate (AMIDATE) 0 .STK-MED ONE IV (DC) Fentanyl Citrate (SUBLIMAZE) 0 .STK-MED ONE .ROUTE (DC) Norepinephrine Bitartrate (LEVOPHED BITARTATE) 0 .STK-MED ONE IV (DC) Propofol (DIPRIVAN 200MG/20ML INJECTION) 0 .STK-MED ONE IV (DC) Dexamethasone Sodium Phosphate (DECADRON) 0 .STK-MED ONE .ROUTE (DC) Lidocaine HCl (XYLOCAINE) 0 .STK-MED ONE .ROUTE (DC) Ondansetron HCl (ZOFRAN) 0 .STK-MED ONE .ROUTE (DC) Rocuronium [place] (ZEMURON) 0 .STK-MED ONE IV (DC) Heparin Sodium (HEPARIN SODIUM) 0 .STK-MED ONE .ROUTE (DC) Thrombin (RECOTHROM) 0 .STK-MED ONE TOPICAL (DC) Levothyroxine Sodium (Synthroid) 75 MCG DAILY@0630 PO Cefazolin Sodium (KEFZOL OR ANCEF) 0 .STK-MED ONE .ROUTE (DC) Cefazolin Sodium (KEFZOL OR ANCEF) 1 GM PREOP ONCALL IV (DC) Sodium Chloride (SODIUM CHLORIDE) 10 ML Hydralazine HCl (APRESOLINE) 10 MG Q6H PRN PRN IV Metoprolol Tartrate (LOPRESSOR) 5 MG Q4H PRN PRN IV Mupirocin (BACTROBAN 2% 22 GM OINTMENT) 1 APPLIC BID NASAL Hydralazine HCl (APRESOLINE) 10 MG ONCE ONE IV (DC) Acetaminophen (TYLENOL) 650 MG Q6H PRN PRN PO Acetaminophen (TYLENOL) 650 MG Q6H PRN PRN RECTAL Docusate Sodium (COLACE) 100 MG Q12H PRN PRN PO Ondansetron HCl (ZOFRAN) 4 MG Q6H PRN PRN IV Ondansetron HCl (ZOFRAN ODT) 4 MG Q6H PRN PRN PO Tramadol HCl (ULTRAM) 50 MG Q6H PRN PRN PO Heparin Sodium (HEPARIN SODIUM) 0 .STK-MED ONE .ROUTE (DC) Thrombin (RECOTHROM) 0 .STK-MED ONE TOPICAL (DC) Etomidate (AMIDATE) 0 .STK-MED ONE IV (DC) Fentanyl Citrate (SUBLIMAZE) 0 .STK-MED ONE .ROUTE (DC) Lidocaine HCl (XYLOCAINE) 0 .STK-MED ONE .ROUTE (DC) Rocuronium [place] (ZEMURON) 0 .STK-MED ONE IV (DC) Lidocaine HCl (XYLOCAINE) 0 .STK-MED ONE .ROUTE (DC) Hydralazine HCl (APRESOLINE) 10 MG ONCE ONE IV (DC) Hydralazine HCl (APRESOLINE) 10 MG ONCE ONE IV (DC) Hydralazine HCl (APRESOLINE) 0 .STK-MED ONE IV (DC) Results Findings/data: Laboratory Tests 05/23 05/23 05/22 0911 0059 8 Chemistry Sodium (134 - 147 mEq/L) 138 138 Potassium (3.4 - 5.0 mEq/L) 3.8 3.7 Chloride (100 - 108 mEq/L) 107 106 Carbon Dioxide (21 - 33 mEq/l) 19 L 23 Anion Gap (0 - 20) 16 13 BUN (7 - 25 mg/dL) 12 11 Creatinine (0.6 - 1.3 mg/dL) 0.9 0.8 Glomerular Filtr Rate (70 - 80) 86.3 H 89.5 H Glucose (77 - 141 mg/dL) 156 H 111 POC Glucose (70 - 110 MG/DL) 115 H Calcium (8.0 - 10.5 mg/dL) 8.4 9.3 Ionized Calcium Jerel (1.09 - 1.30 MMOL/L) 1.18 Phosphorus (2.5 - 4.9 MG/DL) 3.3 Magnesium (1.6 - 2.6 mg/dL) 1.69 Laboratory Tests 05/23 05/23 0749 0051 Coagulation INR (0.8 - 1.2) 1.1 PTT ([place]) (25.0 - 39.5 Seconds) 33.4 PT Patient/Control Mix (9.3 - 12.9 SECONDS) 12.4 Activated Coag Time (74 - 137 SEC) 336 H Laboratory Tests 05/23 05/23 05/23 1125 0911 0100 Hematology WBC (4.5 - 11.0 x10 3/uL) 9.3 RBC (4.00 - 5.60 x10 6/uL) 4.39 Hgb (12.5 - 16.9 g/dL) 14.0 13.9 14.8 Hct (37.5 - 50.7 %) 40.8 40.1 42.7 MCV (81.0 - 99.0 fL) 97.3 MCH (27.0 - 33.0 pg) 33.7 H MCHC (33.0 - 37.0 g/dL) 34.7 RDW (11.5 - 14.5 %) 12.3 Plt Count (150 - 400 x10 3/uL) 193 MPV (7.0 - 9.0 fL) 9.8 H Neut % (Auto) (56.0 - 77.0 %) 85.6 H Lymph % (Auto) (14.0 - 32.0 %) 5.2 L [place] % (Auto) (4.8 - 9.0 %) 8.2 Eos % (Auto) (0.3 - 3.7 %) 0.4 Baso % (Auto) (0.0 - 2.0 %) 0.4 Neut # (Auto) (2.0 - 7.6 x10 3/uL) 7.93 H Lymph # (Auto) (1.0 - 3.8 x10 3/uL) 0.48 L [place] # (Auto) (0.1 - 0.8 x10 3/uL) 0.76 Eos # (Auto) (0.0 - 0.2 x10 3/uL) 0.04 Baso # (Auto) (0.0 - 0.2 x10 3/uL) 0.04 Abs Immat Gran (auto) (0.00 - 0.03 x10 3/uL) 0.02 Immature Gran % (0.0 - 2.0 %) 0.2 Nucleated RBC % (0 - 0 %) 0.0 Nucleated RBCs # (Man) (0.0 - 0.1 x10 3/uL) 0.00 Laboratory Tests 05/24/23 1125: [Embedded Image Not Available] 05/24/23 0911: [Embedded Image Not Available] 05/24/23 0100: [Embedded Image Not Available] 05/24/23 0059: [Embedded Image Not Available] Results: labs reviewed, vital signs reviewed, rhythm personally rev'd, x-ray personally reviewed, current med profile rev'd Free Text Obj Notes Free Text Obj Notes: Physical Exam: General appearance: alert, awake, oriented, room air Head/Eyes: PERRLA, normocephalic Neck: Surgical site dressing clean and dry, no bleeding, tender, has NENA drain Cardiovascular: normal capillary refill, normal heart sounds, regular rate and rhythm, normal S1/S2 Respiratory: aerating well, clear to auscultation, symmetric expansion Abdomen: soft, non-tender, normal bowel sounds Extremities: moves all, no edema Neuro/DEBURRER: alert, oriented X 3, CNII-XII intact, speech is fluent, moves all extremities, no facial droop noted. Skin: Warm, no rash Treatment Prophylaxis Treatment Prophylaxis Urinary cath status: none Oxygen: room air Drain(s)/tube(s): Drain(s)/tube(s): NENA Diagnosis, Assessment Plan Free text A P: 78 M presents for an elective carotid endartectomy and has been postponed till tomorrow 05/23. He has been found to have significant stenosis of the right carotid artery. He has history of atrial fibrillation on elliquis, hypothyroid, hypertension, hyperlipidemia. He denies any neurological deficits. 05/23- Received from PACU, s/p R carotid endarterectomy. Post op hemoglobin is 14. Neuro intact, reports incisional pain. EBL 10cc. Neuro: AA0x3. Pain control. Neurovascular checks per unit protocol CV: PRN hydralazine. Resume home meds as appropriate Dual antiplatelet therapy Statin Resp: Stable. CXR with no active process. GI/ENDO: Bedside swallow test. Resume pre-op diet, add bowel care. BG goal of 140-180 in the ICU, add ISS if needed. Check HgbA1c and TSH. Home dose thyroid meds. Renal: voiding. Stable renal function. Replace magnesium, K Heme: Transfuse for hemoglobin < 8 ID: preop antibiotics. Musc: PT/OT Dispo: CCU. Full code. Son updated at bedside. Thank you for allowing us to participate in the care of this patient, will follow along 37 minutes of critical care spent. Orders: Procedure Date/time Status CBC W/AUTO DIFF 05/27 0500 Active BASIC METABOLIC PANEL 05/27 0500 Active PHOSPHOROUS 05/26 0500 Active MAGNESIUM 05/26 0500 Active CBC W/AUTO DIFF 05/26 0500 Active CALCIUM IONIZED 05/26 0500 Active BASIC METABOLIC PANEL 05/26 0500 Active PHOSPHOROUS 05/25 0500 Active MAGNESIUM 05/25 0500 Active CBC W/AUTO DIFF 05/25 0500 Active CALCIUM IONIZED 05/25 0500 Active BASIC METABOLIC PANEL 05/25 0500 Active PHOSPHOROUS 05/24 0500 Active MAGNESIUM 05/24 0500 Active CALCIUM IONIZED 05/24 0500 Active Consultants: critical/community assistant, hospitalist, thoracic surgery Code status: full code Plan discussed with: patient, son, collaborating MD, nurse, pharmacy/pharmacist at 1223 RPT #:[id number] END OF REPORT [facility] 2023-05-24 10:49:00 [facility] ([facility]) Brief Op Note REPORT#:[id number] REPORT STATUS: Signed REPORT INITIALIZATION DATE:05/24/23 TIME: 1049 PATIENT: OSIEL RENO UNIT #: [id number] ROOM/BED: [place] [id number] : 43 AGE: 78 SEX: M ATTEND: Monroe Lobo MD ADM AUTHOR: Monroe Lobo MD REPT SERVICE DT/TIME: 05/24/23 1049 * ALL edits or amendments must be made on the electronic/computer document * Op/Inv Proc Note - Brief Pre-procedure diagnosis: Right carotid stenosis Post-procedure diagnosis: same as pre procedure dx Procedures performed: R CEA Primary Surgeon: Lashell Rn Staff(s): Chelly Garcia Findings: Calcified plaque right carotid artery Complications: none Estimated blood loss in ml's: 10 cc Specimens removed/altered: none at 1018 RPT #:[id number] END OF REPORT [facility] 2023-05-24 10:24:00 [id number], [place] [address] PATIENT NAME: OSIEL RENO ADMIT DATE: 05/23/23 ACCOUNT NO: [id number] ROOM NO: [place] AGE: 78 REPORT TYPE: OPERATIVE REPORT SEX: M ADMITTING PHYSICIAN:Monroe Lobo MD ATTENDING PHYSICIAN:Monroe Lobo MD OPERATION DATE: 05/24/2023 PREOPERATIVE DIAGNOSES: Severe right internal carotid artery stenosis. POSTOPERATIVE DIAGNOSES: Severe right internal carotid artery stenosis. OPERATION: Right carotid endarterectomy. SURGEON: Alec Lobo M.D. METERMAN: Bruno [place]. ANESTHESIOLOGIST: Dr. Vasquez. ANESTHESIA: General endotracheal anesthesia. ESTIMATED BLOOD LOSS: 10 mL INDICATIONS: Mr. Reno is a very pleasant 78-year-old gentleman with asymptomatic right internal carotid artery stenosis. After due preop counseling, he was brought to the operating room today for right carotid endarterectomy. FINDINGS: 1. Calcified plaque at the bifurcation of the right common carotid artery leading to a pinhole opening in the right internal carotid artery. 2. There was a good endpoint in the right internal carotid artery following endarterectomy. 3. Hypoglossal nerve was identified and protected all throughout the procedure. 4. The patient was moving all extremities and the tongue was midline after extubation. PROCEDURE IN DETAIL: Mr. Reno was identified in the preoperative holding area and brought to the OR and placed supine on the operating table. After induction of general endotracheal anesthesia, Reid catheter, radial arterial line, antibiotics were placed. The patient's right side of the neck was prepped and draped in standard surgical fashion. A timeout procedure was performed. A 4 cm incision was made along the anterior border of middle third right sternocleidomastoid. Platysma was divided with Bovie cautery. The deep fascia was opened the right common carotid, internal carotid, external carotid arteries were identified and dissected. Hypoglossal nerve was identified and protected. The patient was heparinized after waiting for 3 minutes, the bifurcation of the right common carotid artery was isolated between 3 profunda clamp. Arteriotomy PATIENT NAME: OSIEL RENO was performed on the right common carotid artery with #11 blade. This was extended onto the right internal carotid artery using a Lee scissors. Endarterectomy of the right common and internal carotid artery was performed using a [place] dissector. There was a good endpoint in the right internal carotid artery following endarterectomy. The endarterectomy of the right external carotid artery was performed using eversion technique. The artery was then irrigated with 50 mL of warm saline. Patch repair of the right internal and common carotid artery was performed using a bovine pericardial patch and running 6-0 Prolene suture. Prior to tying the patch down, careful de-aeration of the artery was performed. A 7 NENA was placed in the neck. Hemostasis was confirmed and the incision was closed in layers using 2-0 Vicryl for subcutaneous tissue and 4-0 Vicryl for the skin. The patient was extubated in the operating room and moved to PACU in stable condition. The patient was moving all extremities and the tongue was in the midline. Dictated By: Alec Lobo MD Date Dictated: 05/24/2023 10:24:20 Date Transcribed: 05/24/2023 12:25:17 /NORBERTO Receipt ID: [id number] Authenticated by Monroe Lobo MD On 05/24/2023 01:51:14 PM at 0151 PATIENT NAME: OSIEL RENO [facility] 2023-05-24 05:39:00 [facility] ([facility]) History Physical - Adult REPORT#:[id number] REPORT STATUS: Signed REPORT INITIALIZATION DATE:05/24/23 TIME: 538 PATIENT: OSIEL RENO UNIT #: [id number] ROOM/BED: [place] [id number] : 43 AGE: 78 SEX: M ATTEND: Monroe Lobo MD ADM AUTHOR: Naz Lou Physic REPT SERVICE DT/TIME: 05/23/23 0539 * ALL edits or amendments must be made on the electronic/computer document * Naz Lou 05/24/23 0539: History of Present Illness HPI HPI: Late entry, Patient seen 04/24/23 This is an 78-year-old gentleman with a past medical history of hypertension, hyperlipidemia, atrial fibrillation, throat cancer status post radiation in 2009 , who was found to have severe 80% right internal carotid artery stenosis on recent angiogram. Patient was referred by Dr. Camara. The patient denies any dizziness, syncope, history of stroke etc. Patient presents today for right carotid endarterectomy. History Smoking status for patients 13 years old or older: Never Smoker Medication/Allergy-Vaccine Hx Allergies: Coded Allergies: No Known Allergies (05/20/23) Review of Systems All systems rev neg: except as marked Physical Exam VS/I O PATIENT WEIGHT: Weight (lb): 168 Weight (oz): 6.93 Weight (kg): 76.204 General: well nourished, well groomed, no acute distress. HEENT: conjunctiva clear, extraocular movement intact, PERRLA, Neck: no, JVD, trachea midline, no, lymphadenopathy, neck supple, normal ROM. Respiratory: Clear to auscultation, no distress. Cardiovascular: regular rate and rhythm, S1, S2, normal, without murmurs, rubs or gallops, pulses, palpable, symetric. Abdomen: Soft, non tender. No rebound. No guarding Extremities: dry, moves all. Musculoskeletal: Full range of motion, no CVA tenderness, no muscle spasm Skin: warm, dry, no, lesions, rash. Neurologic: Alert and oriented x3. Psychiatric: affect and demeanor normal Diagnosis, Assessment Plan Free Text DxA P Notes Free Text DxA P Notes: Late entry, Patient seen 04/24/23 This is an 78-year-old gentleman with a past medical history of hypertension, hyperlipidemia, atrial fibrillation, throat cancer status post radiation in 2009 , who was found to have severe 80% right internal carotid artery stenosis on recent angiogram. Patient was referred by Dr. Camara. The patient denies any dizziness, syncope, history of stroke etc. Patient presents today for right carotid endarterectomy Assessment/plan 1. Carotid artery stenosis Severe right carotid stenosis presenting for right carotid endarterectomy 2. Hypertension 3. Hyperlipidemia Patient was seen and examined Dr. Lobo. Right carotid endarterectomy was discussed with the patient. The risk of the operation including , bleeding , infection, heart attack, stroke, prolonged ICU stay, renal failure, dialysis, need for long-term rehabilitation etc. was discussed with the patient. The patient's questions were answered and patient agreed to proceed with surgery. Monroe Lobo 06/18/23 0942: Attestations Physician Attestation Agree w/findings plan: I have seen and examined Mr. Reno. I agree with the findings and plan as documented by ANUEL Barreto. Briefly, 78-year-old gentleman with severe right internal carotid artery stenosis being admitted to the hospital for right carotid endarterectomy. I have explained to him the procedure, risk involved, benefit, alternatives, and complications. Patient verbalized understand the risk and has consented for surgery. at 1509 at 1018 RPT #:[id number] END OF REPORT [facility] 2023-05-23 21:24:00 [facility] ([facility]) Critical Care Consult Note REPORT#:[id number] REPORT STATUS: Signed REPORT INITIALIZATION DATE:05/23/23 TIME: 2123 PATIENT: OSIEL RENO UNIT #: [id number] ROOM/BED: [place] [id number] : 43 AGE: 78 SEX: M ATTEND: Monroe Lobo MD ADM AUTHOR: Osiel Tompkins Jr, MD REPT SERVICE DT/TIME: 05/23/232123 * ALL edits or amendments must be made on the electronic/computer document * History of Present Illness HPI HPI: 78 M presents for an elective carotid endartectomy and has been postponed till tomorrow 05/23. He has been found to have significant stenosis of the right carotid artery. He has history of atrial fibrillation on elliquis, hypothyroid, hypertension, hyperlipidemia. He denies any neurological deficits. History - Adult longitudinal Smoking status for patients 13 years old or older: Never Smoker Allergies: Coded Allergies: No Known Allergies (05/20/23) Review of Systems ROS Constitutional: Denies: chills, fatigue, fever, generalized weakness. Eyes: Denies: redness. Respiratory: Denies: hemoptysis, non productive cough, pneumonia, productive cough (sputum). Cardiovascular: Denies: chest pain. GI: Denies: abdominal pain, nausea, vomiting. Neuro: Denies: bladder dysfunction, bowel dysfunction, change in LOC, confusion, dizziness, focal weakness, gait problem. All systems rev neg: except as marked Objective Physical Exam VS/I O: Last Documented: Result Date Time Pulse Ox 98 05/22 1539 B/P 161/87 05/22 1539 Pulse 76 05/22 1539 Resp 18 05/22 1539 Temp 96.3 05/22 1048 Patient Weight and BMI Weight (kg): 79.545 BMI: 24.5 Medications: Active Meds + DC'd Last 24 Hrs Cefazolin Sodium (KEFZOL OR ANCEF) 1 GM PREOP ONCALL IV (CKD) Sodium Chloride (SODIUM CHLORIDE) 10 ML Mupirocin (BACTROBAN 2% 22 GM OINTMENT) 1 APPLIC BID NASAL Hydralazine HCl (APRESOLINE) 10 MG ONCE ONE IV (DC) Acetaminophen (TYLENOL) 650 MG Q6H PRN PRN PO Acetaminophen (TYLENOL) 650 MG Q6H PRN PRN RECTAL Docusate Sodium (COLACE) 100 MG Q12H PRN PRN PO Ondansetron HCl (ZOFRAN) 4 MG Q6H PRN PRN IV Ondansetron HCl (ZOFRAN ODT) 4 MG Q6H PRN PRN PO Tramadol HCl (ULTRAM) 50 MG Q6H PRN PRN PO Heparin Sodium (HEPARIN SODIUM) 0 .STK-MED ONE .ROUTE (DC) Thrombin (RECOTHROM) 0 .STK-MED ONE TOPICAL (DC) Etomidate (AMIDATE) 0 .STK-MED ONE IV (DC) Fentanyl Citrate (SUBLIMAZE) 0 .STK-MED ONE .ROUTE (DC) Lidocaine HCl (XYLOCAINE) 0 .STK-MED ONE .ROUTE (DC) Rocuronium [place] (ZEMURON) 0 .STK-MED ONE IV (DC) Lidocaine HCl (XYLOCAINE) 0 .STK-MED ONE .ROUTE (DC) Hydralazine HCl (APRESOLINE) 10 MG ONCE ONE IV (DC) Hydralazine HCl (APRESOLINE) 10 MG ONCE ONE IV (DC) Hydralazine HCl (APRESOLINE) 0 .STK-MED ONE IV (DC) Heparin Sodium (HEPARIN SODIUM) 0 .STK-MED ONE .ROUTE (DC) Lidocaine HCl (LIDOCAINE HCL/PF) 0 .STK-MED ONE LOCAL (DC) Thrombin (RECOTHROM) 0 .STK-MED ONE TOPICAL (DC) Nicardipine HCl (niCARdipine HCl) 0 .STK-MED ONE IV (DC) Sodium Chloride (SODIUM CHLORIDE 0.9%) 0 .STK-MED ONE IV (DC) Phenylephrine HCl (Phenylephrine PF 500 mcg/5 mL Inj) 0 .STK-MED ONE .ROUTE (DC) Sodium Chloride (SODIUM CHLORIDE) 0 .STK-MED ONE IV (DC) Vasopressin (VASOSTRICT) 0 .STK-MED ONE .ROUTE (DC) Heparin Sodium (HEPARIN SODIUM) 0 .STK-MED ONE .ROUTE (DC) Heparin Sodium/Sodium Chloride (HEPARIN 1,000 UNITS/NS 500ML) 500 ML .STK- MED ONE IV (DC) Dexamethasone Sodium Phosphate (DECADRON) 0 .STK-MED ONE .ROUTE (DC) Ephedrine Sulfate (ePHEDrine sulfate) 0 .STK-MED ONE .ROUTE (DC) Esmolol HCl (BREVIBLOC) 0 .STK-MED ONE IV (DC) Heparin Sodium (HEPARIN SODIUM) 0 .STK-MED ONE .ROUTE (DC) Rocuronium [place] (ZEMURON) 0 .STK-MED ONE IV (DC) Ondansetron HCl (ZOFRAN) 0 .STK-MED ONE .ROUTE (DC) Propofol (DIPRIVAN 200MG/20ML INJECTION) 20 ML .STK-MED ONE IV (DC) Sodium Chloride (SODIUM CHLORIDE) 0 .STK-MED ONE IV (DC) Sodium Chloride (SODIUM CHLORIDE) 0 .STK-MED ONE IV (DC) General appearance: alert, awake, oriented Head/Eyes: PERRLA Cardiovascular: normal capillary refill, normal heart sounds, regular rate and rhythm, normal S1/S2 Respiratory: aerating well, clear to auscultation, symmetric expansion Abdomen: soft, non-tender, normal bowel sounds Extremities: moves all, no edema Neuro/DEBURRER: alert, oriented X 3, CNII-XII intact Results Findings/Data: Laboratory Tests 05/23/23 1009: [Embedded Image Not Available] Laboratory Tests 05/22 1009 Chemistry Sodium (134 - 147 mEq/L) 140 Potassium (3.4 - 5.0 mEq/L) 4.5 Chloride (100 - 108 mEq/L) 107 Carbon Dioxide (21 - 33 mEq/l) 28 Anion Gap (0 - 20) 10 BUN (7 - 25 mg/dL) 11 Creatinine (0.6 - 1.3 mg/dL) 1.0 Glomerular Filtr Rate (70 - 80) 76.1 Glucose (77 - 141 mg/dL) 108 POC Glucose (70 - 110 MG/DL) 115 H Calcium (8.0 - 10.5 mg/dL) 9.4 Total Bilirubin (0.0 - 1.0 mg/dL) 1.00 AST (8 - 34 IUnit/L) 52 H ALT (10 - 49 IUnit/L) 43 Total Alk Phosphatase (20 - 125 IUnit/L) 74 Total Protein (6.4 - 8.2 g/dL) 6.9 Albumin (3.4 - 5.0 g/dL) 3.80 Triglycerides (40 - 150 mg/dL) 77 Cholesterol (<200 mg/dL) 157 LDL Cholesterol [place] (0 - 100 mg/dL) 83.0 HDL Cholesterol (40 - 60 MG/DL) 63.2 H Cholesterol/HDL Ratio (3.43 - 4.97 RATIO) 2.48 L Laboratory Tests 05/22 1009 Coagulation INR (0.8 - 1.2) 1.1 PT Patient/Control Mix (9.3 - 12.9 SECONDS) 12.4 Laboratory Tests 05/22 1009 Hematology WBC (4.5 - 11.0 x10 3/uL) 7.3 RBC (4.00 - 5.60 x10 6/uL) 4.24 Hgb (12.5 - 16.9 g/dL) 14.2 Hct (37.5 - 50.7 %) 42.5 MCV (81.0 - 99.0 fL) 100.2 H MCH (27.0 - 33.0 pg) 33.5 H MCHC (33.0 - 37.0 g/dL) 33.4 RDW (11.5 - 14.5 %) 12.5 Plt Count (150 - 400 x10 3/uL) 197 MPV (7.0 - 9.0 fL) 9.7 H Neut % (Auto) (56.0 - 77.0 %) 82.6 H Lymph % (Auto) (14.0 - 32.0 %) 6.3 L [place] % (Auto) (4.8 - 9.0 %) 8.9 Eos % (Auto) (0.3 - 3.7 %) 1.4 Baso % (Auto) (0.0 - 2.0 %) 0.7 Neut # (Auto) (2.0 - 7.6 x10 3/uL) 6.00 Lymph # (Auto) (1.0 - 3.8 x10 3/uL) 0.46 L [place] # (Auto) (0.1 - 0.8 x10 3/uL) 0.65 Eos # (Auto) (0.0 - 0.2 x10 3/uL) 0.10 Baso # (Auto) (0.0 - 0.2 x10 3/uL) 0.05 Abs Immat Gran (auto) (0.00 - 0.03 x10 3/uL) 0.01 Immature Gran % (0.0 - 2.0 %) 0.1 Nucleated RBC % (0 - 0 %) 0.0 Nucleated RBCs # (Man) (0.0 - 0.1 x10 3/uL) 0.00 Radiology data: Recent Impressions: RADIOLOGY - XR CHEST 1 V 05/22 1022 Report Impression - Status: SIGNED Entered: 05/23/2023 1114 IMPRESSION: No active disease. Impression By: Lo Dumont M.D. Diagnosis, Assessment Plan Diagnosis, Assessment Plan Additional comments: 78 M presents for an elective carotid endartectomy and has been postponed till tomorrow 05/23. He has been found to have significant stenosis of the right carotid artery. He has history of atrial fibrillation on elliquis, hypothyroid, hypertension, hyperlipidemia. He denies any neurological deficits. Neuro: Stable CV: Hypertension - prn meds - Carotid stenosis - plan for OR tomorrow - Hyperlipidemia Resp: Stable GI: NPO after midnight Plan for OR tomorrow at 2134 RPT #:[id number] END OF REPORT [facility] 2023-05-23 10:05:00 [id number], [place] [address] PATIENT NAME: OSIEL RENO ADMIT DATE: 05/23/23 ACCOUNT NO: [id number] ROOM NO: AGE: 78 REPORT TYPE: eELECTROCARDIOGRAM REPORT SEX: M ADMITTING PHYSICIAN: ATTENDING PHYSICIAN:Monroe Lobo MD Order: [id number] Test Reason : R CAROTID ENDARTEREC Test Date/Time Stamp: TueMay 23 2023 10:05:28 Blood Pressure : / mmHG Vent. Rate : 069 BPM Atrial Rate : 075 BPM P-R Int : 000 ms QRS Dur : 082 ms QT Int : 420 ms P-R-T Axes : 000 033 015 degrees QTc Int : 450 ms Atrial fibrillation with premature ventricular or aberrantly conducted complexes Abnormal ECG No previous ECGs available Confirmed by FERNANDA LEMUS MD ([id number]) on 05/23/2023 2:49:52 PM Referred By: Monroe Lobo Confirmed by:FERNANDA LEMUS MD at 1443 PATIENT NAME: OSIEL RENO [facility]
--- NOTE | 2024-05-26 02:24 | EDPHYS ---
Physician Documentation [facility] Name: Ryland Toney Age: 79 yrs Sex: Male : 1945 Arrival Date: 05/26/2024 Time: 01:56 Bed 2 Private MD: ED Physician Thien Wyatt HPI: 05/26 02:15 This 79 yrs old Male presents to ER via Wheelchair with complaints of Facial lj Droop. 02:15 The patient presents to the emergency department with weakness of the a speech or lj higher order brain function problem, difficulty standing, the patient falls to the left, difficult walking, the patient is off balance. Onset: The symptoms/episode [place]. Context: occurred at an unknown location. Associated signs and symptoms: Pertinent positives: left face weal , left arm , speech off. Severity of symptoms: At their worst the symptoms were moderate in the emergency department the symptoms are unchanged. Patient's baseline: Neuro: alert and fully oriented. Current symptoms: Currently, the patient is not experiencing any symptoms, the patient feels back to baseline, confusion. It is unknown whether or not the patient has had similar symptoms in the past. Historical: - Allergies: 02:08 No Known Allergies; cp4 - PMHx: 02:08 Atrial Fib; CA - Head and Neck; Diabetes - NIDDM; Hypertension; Hypothyroidism; cp4 inguinal hernia - right; osteoarthritis; PROSTATE CA; - Immunization history:: Adult Immunizations up to date. - Infectious Disease History:: Denies. - Social history:: Smoking status: Patient denies any tobacco usage or history of. - Family history:: not pertinent. ROS: 02:15 Constitutional: Negative for fever, chills, and weight loss, Eyes: Negative for injury, lj pain, redness, and discharge, ENT: Negative for injury, pain, and discharge, Neck: Negative for injury, pain, and swelling, Cardiovascular: Negative for chest pain, palpitations, and edema, Respiratory: Negative for shortness of breath, cough, wheezing, and pleuritic chest pain, Abdomen/GI: Negative for abdominal pain, nausea, vomiting, diarrhea, and constipation, Back: Negative for injury and pain, : Negative for injury, bleeding, discharge, and swelling, MS/Extremity: Negative for injury and deformity, Skin: Negative for injury, rash, and discoloration, Psych: Negative for depression, anxiety, suicide ideation, homicidal ideation, and hallucinations, Allergy/Immunology: Negative for hives, rash, and allergies, Endocrine: Negative for neck swelling, polydipsia, polyuria, polyphagia, and marked weight changes, Hematologic/Lymphatic: Negative for swollen nodes, abnormal bleeding, and unusual bruising, 02:15 Neuro: Positive for speech changes, weakness, of the face and left arm, Exam: 02:15 Constitutional: This is a well developed, well nourished patient who is awake, alert, lj and in no acute distress. Head/Face: Normocephalic, atraumatic. Eyes: Pupils equal round and reactive to light, extra-ocular motions intact. Lids and lashes normal. Conjunctiva and sclera are non-icteric and not injected. Cornea within normal limits. Periorbital areas with no swelling, redness, or edema. ENT: Nares patent. No nasal discharge, no septal abnormalities noted. Tympanic membranes are normal and external auditory canals are clear. Oropharynx with no redness, swelling, or masses, exudates, or evidence of obstruction, uvula midline. Mucous membranes moist. Neck: Trachea midline, no thyromegaly or masses palpated, and no cervical lymphadenopathy. Supple, full range of motion without nuchal rigidity, or vertebral point tenderness. No Meningismus. Chest/axilla: Normal chest wall appearance and motion. Nontender with no deformity. No lesions are appreciated. Cardiovascular: Regular rate and rhythm with a normal S1 and S2. No gallops, murmurs, or rubs. Normal PMI, no JVD. No pulse deficits. Respiratory: Lungs have equal breath sounds bilaterally, clear to auscultation and percussion. No rales, rhonchi or wheezes noted. No increased work of breathing, no retractions or nasal flaring. Abdomen/GI: Soft, non-tender, with normal bowel sounds. No distension or tympany. No guarding or rebound. No evidence of tenderness throughout. Back: No spinal tenderness. No costovertebral tenderness. Full range of motion. Male : Normal genitalia with no discharge or lesions. Skin: Warm, dry with normal turgor. Normal color with no rashes, no lesions, and no evidence of cellulitis. Neuro: Awake and alert, GCS 15, oriented to person, place, time, and situation. Cranial nerves II-XII grossly intact. Motor strength 5/5 in all extremities. Sensory grossly intact. Cerebellar exam normal. Normal gait. Psych: Awake, alert, with orientation to person, place and time. Behavior, mood, and affect are within normal limits. 02:15 Musculoskeletal/extremity: ROM: limited active range of motion due to pain, in the left arm, Circulation is intact in all extremities. Sensation intact. Compartment Syndrome exam of affected extremity: is normal. DVT Exam: No signs of deep vein thrombosis. no pain, no swelling, no tenderness, negative Homans' sign noted on exam, no appreciated bluish discoloration, no erythema, no increased warmth, 02:15 Neuro: Orientation: to person, Not oriented to place, time, situation, Mentation: confused, Memory: unable to test, Cranial nerves: facial droop noted on left, with forehead spared. Cerebellar function: dysmetria is noted on the left, Motor: moves all fours, Strength is 3/5 in the left arm, Gait: not tested. seizure activity, is not displayed by the patient, 02:39 ECG was reviewed by the Attending Physician. [facility] Vital Signs: 02:21 BP 177 / 111; Pulse 80; Resp 18; Temp 97.8; Pulse Ox 100% ; Pain 0/10; cp4 03:03 BP 188 / 90; Pulse 75; Resp 18; Pulse Ox 100% ; cp4 03:40 BP 171 / 102; Pulse 72; Resp 18; Pulse Ox 100% ; cp4 02:21 Pain Scale: Adult cp4 NIH Stroke Scale Scores: 02:12 NIHSS Score: 5 cp4 02:38 NIHSS Score: 5 [facility] MDM: 02:20 Data reviewed: vital signs, nurses notes, EMS record, lab test result(s), EKG, [facility] radiologic studies, CT scan, plain films. Consideration of Admission/Observation Escalation of care including admission/observation considered. I considered the following discharge prescriptions or medication management in the emergency department Medications were administered in the Emergency Department. See MAR. Independent interpretation of the following test(s) in the Emergency Department EKG: See my EKG interpretation above. Test considered but Not performed: MRI: no mri , no echo. Historians other than the Patient: Family Member: ex , grandson. Care significantly affected by the following chronic conditions: Diabetes, Hypertension, Cancer, a fib, hypothyroid. 02:24 Medical Screening Exam initiated 05/26 02:15 Order name: Basic Metabolic Panel; Complete Time: 03:17 [facility] 05/26 02:15 Order name: CBC with Diff; Complete Time: 02:53 [facility] 05/26 02:15 Order name: LFT's; Complete Time: 03:17 [facility] 05/26 02:15 Order name: Magnesium; Complete Time: 03:17 [facility] 05/26 02:15 Order name: NT PRO-BNP; Complete Time: 03:17 [facility] 05/26 02:15 Order name: PT-INR; Complete Time: 02:53 [facility] 05/26 02:15 Order name: Troponin HS; Complete Time: 03:17 [facility] 05/26 02:15 Order name: Lipase; Complete Time: 03:17 [facility] 05/26 02:15 Order name: CRP; Complete Time: 03:17 [facility] 05/26 02:37 Order name: Glucose, Ancillary Testing; Complete Time: 02:48 [facility] 05/26 02:15 Order name: XRAY Chest (1 view) [facility] 05/26 02:15 Order name: CT Stroke Brain w/o Contrast [facility] 05/26 02:15 Order name: CT Head Angio [facility] 05/26 02:15 Order name: CT Neck Angio [facility] 05/26 02:15 Order name: EKG; Complete Time: 02:15 [facility] 05/26 02:15 Order name: Cardiac monitoring; Complete Time: 02:26 [facility] 05/26 02:15 Order name: EKG - Nurse/Tech; Complete Time: 02:31 [facility] 05/26 02:15 Order name: IV Saline Lock; Complete Time: 02:16 [facility] 05/26 02:15 Order name: Labs collected and sent; Complete Time: 02:16 [facility] 05/26 02:15 Order name: O2 Per Protocol; Complete Time: 02:26 [facility] 05/26 02:15 Order name: O2 Sat Monitoring; Complete Time: 02:26 [facility] EC:39 Rate is 75 beats/min. Rhythm is irregularly irregular. QRS Breeding is Normal. VT interval lj is normal. QRS interval is normal. QT interval is normal. No Q waves. T waves are Normal. No ST changes noted. Clinical impression: Atrial Fibrillation and No evidence of ischemia. Interpreted by me. Reviewed by me. Administered Medications: 02:30 Drug: NS 0.9% IV 1000 ml IV at 1000 ml once; to be given as a bolus over 60 minutes cp4 Route: IV; Rate: 1000 ml; Site: right forearm; 04:08 Follow up: IV Status: Completed infusion cp4 02:31 Drug: foLIC Acid IVPB 1 mg IVPB once Route: IVPB; Site: right forearm; cp4 02:31 Follow up: IV Status: Completed infusion cp4 04:12 Drug: Aspirin PO Chewable Tablet 81 mg PO once Route: PO; cp4 04:12 Follow up: Response: No adverse reaction cp4 Disposition Summary: 05/26/24 02:24 Transfer Ordered Notes: Transfer Location: [facility] lj Reason: Higher level of care lj Condition: Fair lj Problem: new lj Symptoms: have improved lj Accepting Physician: najma goff [facility] [place](05/26/24 04:58) cp4 Diagnosis - Aphasia lj - Cerebral infarction, unspecified - aphasia, left face and arm weak , on xarelto and lj outside time , time unknown, right M2 SEGMENT, ABRUPT CUT OFF, LVO(05/26/24 03:43) - Altered mental status, unspecified lj Forms: - Medication Reconciliation Form lj - SBAR form lj NIH Stroke Scale - NIH Stroke Score Date: 05/26/2024 Time: 02:12 Total Score = 5 10. Dysarthria (speech clarity - read or repeat words) - 1(Mild to Moderate) 11. Extinction and Inattention (visual/tactile/auditory/spatial/personal) - 0(No abnormality) 1a. Level of Consciousness (LOC) - 0(Alert) 1b. Level of Consciousness (LOC) (Month \T\ Age) - 0(Both) 1c. LOC Commands (Open \T\ Closes Eyes/[employer] Generation Turbine Room Operator) - 0(Both) 2. Best Gaze (Lateral Gaze Paresis) - 0(Normal) 3. Visual Field Loss - 0(No visual loss) 4. Facial Palsy - 1(Minor Paralysis) 5a. Left Arm: Motor (10-second hold) - 1(Drift) 5b. Right Arm: Motor (10-second hold) - 0(No drift) 6a. Left Leg: Motor (5-second hold - always test supine) - 0(No drift) 6b. Right Leg: Motor (5-second hold - always test supine) - 0(No drift) 7. Limb Ataxia (finger/nose \T\ heel/leal - test with eyes open) - 1(Present in one limb) 8. Sensory Loss (pinprick arms/legs/face) - 0(Normal) 9. Best Language: Aphasia (description/naming/reading) - 1(Mild to moderate aphasia) Initials: cp4 NIH Stroke Scale - NIH Stroke Score Date: 05/26/2024 Time: 02:38 Total Score = 5 10. Dysarthria (speech clarity - read or repeat words) - 1(Mild to Moderate) 11. Extinction and Inattention (visual/tactile/auditory/spatial/personal) - 0(No abnormality) 1a. Level of Consciousness (LOC) - 0(Alert) 1b. Level of Consciousness (LOC) (Month \T\ Age) - 0(Both) 1c. LOC Commands (Open \T\ Closes Eyes/Power Generation Turbine Room Operator) - 0(Both) 2. Best Gaze (Lateral Gaze Paresis) - 0(Normal) 3. Visual Field Loss - 0(No visual loss) 4. Facial Palsy - 1(Minor Paralysis) 5a. Left Arm: Motor (10-second hold) - 1(Drift) 5b. Right Arm: Motor (10-second hold) - 0(No drift) 6a. Left Leg: Motor (5-second hold - always test supine) - 0(No drift) 6b. Right Leg: Motor (5-second hold - always test supine) - 0(No drift) 7. Limb Ataxia (finger/nose \T\ heel/leal - test with eyes open) - 1(Present in one limb) 8. Sensory Loss (pinprick arms/legs/face) - 0(Normal) 9. Best Language: Aphasia (description/naming/reading) - 1(Mild to moderate aphasia) Initials: lj Signatures: Dispatcher [employer] EDMS Thien Wyatt MD MD cha Potter, Christina cp4 Corrections: (The following items were deleted from the chart) 02:15 02:15 BASIC METABOLIC PANEL+C.LAB.BRZ ordered. EDMS EDMS 02:15 02:15 CBC+H.LAB.BRZ ordered. EDMS EDMS 02:15 02:15 HEPATIC FUNCTION+C.LAB.BRZ ordered. EDMS EDMS 02:15 02:15 MAGNESIUM+C.LAB.BRZ ordered. EDMS EDMS 02:15 02:15 PROBNP+C.LAB.BRZ ordered. EDMS EDMS 02:15 02:15 PROTIME (+INR)+COAG.LAB.BRZ ordered. EDMS EDMS 02:15 02:15 Troponin High Sensitivity+C.LAB.BRZ ordered. EDMS EDMS 02:15 02:15 LIPASE+C.LAB.BRZ ordered. EDMS EDMS 02:15 02:15 C-REACTIVE PROTEIN+C.LAB.BRZ ordered. EDMS EDMS 02:15 02:15 Urinalysis+U.LAB.BRZ ordered. EDMS EDMS 03:43 02:24 to [facility] lj lj 03:43 02:24 Cerebral infarction, unspecified - aphasia, left face and arm weak , on lj xarelto and outside time , time unknown lj 04:58 03:43 to [facility] lj cp4
--- NOTE | 2024-05-26 02:24 | ER ---
Nurse's Notes [facility] Name: Ryland Toney Age: 79 yrs Sex: Male : 1945 Arrival Date: 05/26/2024 Time: 01:56 Bed 2 Private MD: Diagnosis: Aphasia;Cerebral infarction, unspecified-aphasia, left face and arm weak , on xarelto and outside time , time unknown, right M2 SEGMENT, ABRUPT CUT OFF, LVO;Altered mental status, unspecified Presentation: 05/26 02:05 Chief complaint: Patient states: left sided facial weakness, left arm weakness, and cp4 expressive aphasia. Last known well was approximately 2029 when [place] airport. Coronavirus screen: Client denies travel out of the [place] in the last 14 days. At this time, the client does not indicate any symptoms associated with coronavirus-19. Ebola Screen: Patient negative for fever greater than or equal to 101.5 degrees Fahrenheit, and additional compatible Ebola Virus Disease symptoms Patient denies exposure to infectious person. Patient denies travel to an Ebola-affected area in the 21 days before illness onset. No symptoms or risks identified at this time. No acute neurological deficit is noted. Initial Sepsis Screen: Does the patient meet any 2 criteria?. Risk Assessment: Do you want to hurt yourself or someone else? Patient reports no desire to harm self or others. 02:05 Method Of Arrival: Wheelchair cp4 02:05 Acuity: YESIKA 2 cp4 Triage Assessment: 02:08 The onset of the patients symptoms was more than three but less than six hours ago. The cp4 onset of the patients symptoms was May 25, 2024 at 20:30. General: Appears in no apparent distress. comfortable, Behavior is calm, cooperative, appropriate for age. Pain: Denies pain. EENT: No signs and/or symptoms were reported regarding the EENT system. Neuro: Reports weakness in left face, left arm. Cardiovascular: Patient's skin is warm and dry. Respiratory: Airway is patent Respiratory effort is even, unlabored. GI: No signs and/or symptoms were reported involving the gastrointestinal system. : No signs and/or symptoms were reported regarding the genitourinary system. Derm: No signs and/or symptoms reported regarding the dermatologic system. Musculoskeletal: No signs and/or symptoms reported regarding the musculoskeletal system. Stroke Activation: Symtpom onset >3 hours and < 6 hours Physician: ED Attending; Name: ; Notified At: ; Arrived At: Physician: Mid-Level Provider; Name: ; Notified At: ; Arrived At: Physician: [not used]; Name: ; Notified At: ; Arrived At: Physician: [not used]; Name: ; Notified At: ; Arrived At: Physician: [not used]; Name: ; Notified At: ; Arrived At: Historical: - Allergies: 02:08 No Known Allergies; cp4 - PMHx: 02:08 Atrial Fib; CA - Head and Neck; Diabetes - NIDDM; Hypertension; Hypothyroidism; cp4 inguinal hernia - right; osteoarthritis; PROSTATE CA; - Immunization history:: Adult Immunizations up to date. - Infectious Disease History:: Denies. - Social history:: Smoking status: Patient denies any tobacco usage or history of. - Family history:: not pertinent. Screenin:03 [facility] ED Fall Risk Assessment (Adult) History of falling in the last 3 months, cp4 including since admission No falls in past 3 months (0 pts) Confusion or Disorientation No (0 pts) Intoxicated or Sedated No (0 pts) Impaired Gait No (0 pts) Mobility Assist Device Used No (0 pt) Altered Elimination No (0 pt) Score/Fall Risk Level 0 - 2 = Low Risk Oriented to surroundings, Maintained a safe environment, Assessed \T\ reinforced patient's understanding of fall precautions, Hourly rounding (assess needs \T\ fall precautionary measures) done. Abuse screen: Denies threats or abuse. Denies injuries from another. Nutritional screening: No deficits noted. Tuberculosis screening: No symptoms or risk factors identified. Assessment: 02:12 [facility] Protocol Exclusion Criteria: NPO for medical/surgical reason by provider cp4 order Yes. TNKase (Tenecteplase) Screening: Indications: Contraindications: Is the patient on Aspirin, Heparin, or Warfarin: Yes. 04:12 Reassessment: See stroke packet for vitals. cp4 Vital Signs: 02:21 BP 177 / 111; Pulse 80; Resp 18; Temp 97.8; Pulse Ox 100% ; Pain 0/10; cp4 03:03 BP 188 / 90; Pulse 75; Resp 18; Pulse Ox 100% ; cp4 03:40 BP 171 / 102; Pulse 72; Resp 18; Pulse Ox 100% ; cp4 02:21 Pain Scale: Adult cp4 NIH Stroke Scale Scores: 02:12 NIHSS Score: 5 cp4 02:38 NIHSS Score: 5 [facility] ED Course: 01:57 Patient arrived in ED. [email or web address] 02:05 Anabell Chao is Primary Nurse. cp4 02:08 Triage completed. cp4 02:13 Thien Wyatt MD is Attending Physician. lj 02:16 Inserted saline lock: 20 gauge in right antecubital area, using aseptic technique. af3 Blood collected. Flushed with 10 mL NS. 02:27 CT Stroke Brain w/o Contrast In Process Unspecified. EDMS 02:27 CT Head Angio In Process Unspecified. EDMS 02:27 CT Neck Angio In Process Unspecified. EDMS 02:36 XRAY Chest (1 view) In Process Unspecified. EDMS 03:03 No provider procedures requiring assistance completed. cp4 03:03 Placed in gown. Bed in low position. Side rails up X2. Provided Education on: transfer. cp4 04:58 Patient transferred, IV remains in place. cp4 Administered Medications: 02:30 Drug: NS 0.9% IV 1000 ml IV at 1000 ml once; to be given as a bolus over 60 minutes cp4 Route: IV; Rate: 1000 ml; Site: right forearm; 04:08 Follow up: IV Status: Completed infusion cp4 02:31 Drug: foLIC Acid IVPB 1 mg IVPB once Route: IVPB; Site: right forearm; cp4 02:31 Follow up: IV Status: Completed infusion cp4 04:12 Drug: Aspirin PO Chewable Tablet 81 mg PO once Route: PO; cp4 04:12 Follow up: Response: No adverse reaction cp4 Medication: 04:58 VIS not applicable for this client. cp4 Outcome: 02:24 ER care complete, transfer ordered by . [facility] 04:58 Transferred by ground EMS to [facility], Transfer form completed. cp4 X-rays sent w/ patient. 04:58 Condition: stable 04:58 Instructed on the need for transfer, 04:58 Patient left the ED. cp4 NIH Stroke Scale - NIH Stroke Score Date: 05/26/2024 Time: 02:12 Total Score = 5 10. Dysarthria (speech clarity - read or repeat words) - 1(Mild to Moderate) 11. Extinction and Inattention (visual/tactile/auditory/spatial/personal) - 0(No abnormality) 1a. Level of Consciousness (LOC) - 0(Alert) 1b. Level of Consciousness (LOC) (Month \T\ Age) - 0(Both) 1c. LOC Commands (Open \T\ Closes Eyes/Chief Of Production) - 0(Both) 2. Best Gaze (Lateral Gaze Paresis) - 0(Normal) 3. Visual Field Loss - 0(No visual loss) 4. Facial Palsy - 1(Minor Paralysis) 5a. Left Arm: Motor (10-second hold) - 1(Drift) 5b. Right Arm: Motor (10-second hold) - 0(No drift) 6a. Left Leg: Motor (5-second hold - always test supine) - 0(No drift) 6b. Right Leg: Motor (5-second hold - always test supine) - 0(No drift) 7. Limb Ataxia (finger/nose \T\ heel/leal - test with eyes open) - 1(Present in one limb) 8. Sensory Loss (pinprick arms/legs/face) - 0(Normal) 9. Best Language: Aphasia (description/naming/reading) - 1(Mild to moderate aphasia) Initials: cp4 NIH Stroke Scale - NIH Stroke Score Date: 05/26/2024 Time: 02:38 Total Score = 5 10. Dysarthria (speech clarity - read or repeat words) - 1(Mild to Moderate) 11. Extinction and Inattention (visual/tactile/auditory/spatial/personal) - 0(No abnormality) 1a. Level of Consciousness (LOC) - 0(Alert) 1b. Level of Consciousness (LOC) (Month \T\ Age) - 0(Both) 1c. LOC Commands (Open \T\ Closes Eyes/Chief Of Production) - 0(Both) 2. Best Gaze (Lateral Gaze Paresis) - 0(Normal) 3. Visual Field Loss - 0(No visual loss) 4. Facial Palsy - 1(Minor Paralysis) 5a. Left Arm: Motor (10-second hold) - 1(Drift) 5b. Right Arm: Motor (10-second hold) - 0(No drift) 6a. Left Leg: Motor (5-second hold - always test supine) - 0(No drift) 6b. Right Leg: Motor (5-second hold - always test supine) - 0(No drift) 7. Limb Ataxia (finger/nose \T\ heel/leal - test with eyes open) - 1(Present in one limb) 8. Sensory Loss (pinprick arms/legs/face) - 0(Normal) 9. Best Language: Aphasia (description/naming/reading) - 1(Mild to moderate aphasia) Initials: lj Signatures: Dispatcher [employer] EDThien Nguyen MD MD cha Jeffries, Jennifer [email or web address] Anabell Chao cp4 Kareen Hernandez3 Corrections: (The following items were deleted from the chart) 03:03 02:12 VAN Scoring: Arm Drift: Patients demonstrates NO arm weakness. Patient is cp4 VAN Negative. cp4 03:03 02:12 [place] [facility] Protocol Brief Cognitive Screen What is your name? Normal, cp4 Where are you right now? Normal, What year is it? Normal. Oral Mechanism Examination Facial Symmetry: Normal, Motion: Normal, Lip Closure: Normal, 3 oz Water Swallow Challenge: Result: FAIL Notified: Thien Wyatt MD cp4 03:03 03:01 BP 177 / 111; Pulse 80bpm; Resp 18bpm; Pulse Ox 100%; Temp 97.8F; Pain cp4 0/10, Adult; cp4 03:51 02:12 NIHSS Score: 2 cp4 cp4
[2024-05-26] MEDS ORDERED: NA CHLORIDE 0.9% 1,000 ML ONE (02:28)
[2024-05-26] MEDS ORDERED: FOLIC ACID 5 MG/ML VIAL ONE (02:28)
[2024-05-26 02:47] LABS: Absolute Lymphocytes (CBC) 0.8 K/uL (0.7-4.9); Absolute Monocytes 0.9 K/uL (0.1-1.3); Absolute Neutrophil 7.3 K/uL (1.8-8.0); Basophils % 0.5 % (0-1.3); Eosinophils % 0.4 % (0-4.4); Hematocrit 37.9 % (39.6-49.0); Hemoglobin 12.9 g/dL (13.6-17.9); Lymphocytes % 8.3 % (15.3-44.8); MCH 29.4 pg (27.0-35.0); MCV 86.4 fL (80-100); MPV 7.8 fL (7.6-11.3); Monocytes % 9.8 % (3.3-12.3); Nucleated Red Blood Cells % 0.1 % (0-0); Platelets 250 thou/uL (152-406); RBC Red Blood Cell Count 4.38 M/uL (4.33-5.43); Red Cell Distribution Width 14.8 % (12.1-15.2)
[2024-05-26 02:48] LABS: PT Prothrombin Time 19.8 SECONDS (10-13.0); Protime INR 1.79
[2024-05-26 02:58] LABS: ALT/SGPT 33 U/L (16-61); AST/SGOT 25 U/L (15-37); Albumin 3.7 g/dL (3.4-5.0); Alkaline Phosphatase 83 U/L (45-117); Anion Gap 10.5 mEq/L (5.0-15.0); BUN Blood Urea Nitrogen 20 mg/dL (7-18); Bicarbonate 25 mEq/L (21-32); Bilirubin Direct 0.3 mg/dL (0-0.2); Bilirubin Indirect, Calculated 0.7 mg/dL (0.2-0.8); Globulin 3.7 g/dL (2.3-3.5); Glomerular Filtration Rate 71 ml/min (=/>90); Glucose Level 108 mg/dL (74-106); Lipase 156 U/L (13-75); Magnesium 1.8 mg/dL (1.6-2.4); NT PRO-BNP 1056 pg/mL (<450); Potassium 3.5 mEq/L (3.5-5.1); Protein, Total 7.4 g/dL (6.4-8.2); Sodium Level 137 mEq/L (136-145); Troponin High Sensitivity 27.6 pg/mL (<58.9)
[2024-05-26 03:05] LABS: C-Reactive Protein < 2.90 mg/L (<3.00)
[2024-05-26] MEDS ORDERED: ASPIRIN 81 MG CHEWABLE TABLET ONE (04:10)
--- NOTE | 2024-05-26 04:13 | RAD REPORT ---
CLINICAL HISTORY: Cough. COMPARISON: None. TECHNIQUE: XR CHEST 1 VIEW 05/26/2024 2:15 AM CDT FINDINGS: The heart is mildly enlarged. Lungs are clear without consolidation, atelectasis, mass or edema. Ther e is no pleural effusion. There is no pneumothorax. There are no acute osseous findings. IMPRESSION: Clear lungs. Electronically signed by: Car Chow MD 05/26/2024 03:41 AM CDT RP Due to temporary technical issues with the PACS/[employer] reporting system, reports are being javon d by the in-house radiologist without review as a courtesy to ensure prompt reporting the interpreting radiologist is fully responsible for the content of the report. Transcribed Date/Time: 05/26/2024 4:13 AM
--- NOTE | 2024-05-26 04:16 | RAD REPORT ---
EXAM DESCRIPTION: Ct Stroke Brain Wo Cont 05/26/2024 3:00 AM CDT CLINICAL HISTORY: 79 years, Male, STROKE ALERT COMPARISON: None FINDINGS: Multiple transaxial tomograms of the brain were obtained from the base of the skull to the vertex wit hout contrast. An individualized dose optimization technique, Automated Exposure Control, was utilized for the perfo rmed procedure. Brain: The brain demonstrate prominence of the sulci and gyri corresponding to mild brain atrophy. Th ere is questionable slight decreased density within the right posterior temporal lobe/parietal lobe on axial image 21 possibility of acute infarction could be of consideration. No acute intracranial he morrhage. No midline shift and/or mass effect. Ventricles: Lateral ventricles and cisterns displace normal appearance. Vasculature: No visualized abnormalities in the arteries or dural venous sinuses. Scalp/skull: The calvarium demonstrate to be intact with no evidence for acute bony injuries. Sinuses: The visualized paranasal sinuses and mastoid air cells demonstrate to be clear. Orbits: No significant abnormalities in the visualized orbital structures. IMPRESSION: Questionable slight decreased density within the right parietal lobe/posterior temporal lobe on axial possibility of acute infarction could be of consideration. No acute intracranial hemorrhage. Mild brain atrophy. Electronically signed by: Gaurav Jolly MD 05/26/2024 03:02 AM CDT Due to temporary technical issues with the PACS/[employer] reporting system, reports are being javon d by the in-house radiologist without review as a courtesy to ensure prompt reporting the interpreting radiologist is fully responsible for the content of the report. Transcribed Date/Time: 05/26/2024 4:16 AM
--- NOTE | 2024-05-26 04:17 | RAD REPORT ---
EXAM DESCRIPTION: Head angio (accession [id number]), Neck Angio (accession [id number]) 5 3:02 AM CDT CLINICAL HISTORY: 79 years, Male, Aphasia;TIA COMPARISON: None PROCEDURE: Multiple transaxial tomograms from the aortic arch through the brain were performed after administrat ion of large bolus of IV contrast for complete opacification of the carotid arteries and intracranial vessels. Subsequent 2-D and 3-D multiplanar reformats, volume rendering technique and maximum intensity projec tion images were generated and reviewed An individualized dose optimization technique, Automated Exposure Control, was utilized for the perfo rmed procedure. CAROTID STENOSIS REFERENCE USING NASCET CRITERIA: % ICA stenosis = (1 - narrowest ICA diameter/diamet er of distal cervical ICA) x 100. Mild - <50% stenosis. Moderate - 50-69% stenosis. Severe - 70-94% stenosis. Near occlusion - 95-99% stenosis. Occluded - 100% stenosis. FINDINGS: Ascending aorta: The aortic arch was not imaged. There is left vertebral artery dominance with smal l caliber of the right vertebral artery. No great vessel origin stenosis is identified. Right carotid artery: Normal opacification is demonstrated within the right common carotid artery and at the carotid bifurcation. Minimal intimal opacification. The carotid bulb peripheral thickening with multiple surgical clips perhaps corresponding to previous right endarterectomy. No evidence for stenosis. The proximal, mid and distal portion of the right internal carotid artery demonstrated to be patent. No evidence for stenosis and/or occlusion. Left carotid artery: Normal opacification is demonstrated within the left common carotid artery and a t the carotid bifurcation. The carotid bulb demonstrate minimal peripheral atheromatous plaque. No evidence for stenosis. The proximal, mid and distal portion of the left internal carotid artery demon strated to be patent. No evidence for stenosis and/or occlusion. Surgical clips within the left lateral neck and absence of the soft tissue suggest the possibility of radical neck dissection Intracranial circulation: Intracranial portions of the internal carotid arteries the cavernous sinus portions demonstrates the presence of minimal peripheral atheromatous plaque with no evidence for stenosis and/or aneurysm. There is abrupt cut off of the midportion of the right M2 segment at the level of the sylvian fissure on MR series #602 image 106/179 and axial maximum intensity projection images CT series #509 image 27/ corresponding to most likely thrombus. There is hypoplastic/absent right A1 segment. Otherwise the anterior cerebral arteries, left middle c erebral arteries and its branches demonstrate normal opacification with no evidence for stenosis, occlusion and/or aneurysm. There is normal venous drainage with no evidence for sinus vein thrombosis . Vertebrobasilar system: The posterior circulation demonstrate left vertebral artery dominance with no evidence for stenosis and/or evidence for significant dissection. There are vascular artery and [employer] demonstrate to be normal with no evidence for aneurysm and/or occlusion. The brain parenchyma demonstrate mild brain atrophy. Findings suggest perhaps slight decrease perfusi on/flow within the recently described area of hypodensity within the right posterior temporal/parietal lobe. No evidence for mass effect and/or midline shift. There is no evidence for ab normal parenchymal enhancement. The skull base and intracranial structures demonstrate to be within normal limits. Lung apex: No gross abnormalities are noted within the apices. IMPRESSION: Abrupt cut off of the midportion of the right M2 segment at the level of the Sylvian fissure correspo nding to most likely thrombus. Hypoplastic/absent right A1 segment. No evidence for stenosis and/or aneurysm of the intracranial vessels. Left vertebral artery dominance with small caliber of the right vertebral artery. Postsurgical changes within the left lateral neck and absence of the soft tissue suggest the possibil ity of radical neck dissection. Surgical clips within the right internal carotid artery perhaps just in the possibility of previous e ndarterectomy. Electronically signed by: Gaurav Jolly MD 05/26/2024 03:10 AM CDT Due to temporary technical issues with the PACS/[employer] reporting system, reports are being javon d by the in-house radiologist without review as a courtesy to ensure prompt reporting the interpreting radiologist is fully responsible for the content of the report. Transcribed Date/Time: 05/26/2024 4:16 AM
--- NOTE | 2024-05-26 04:17 | RAD REPORT ---
EXAM DESCRIPTION: Head angio (accession [id number]), Neck Angio (accession [id number]) 5 3:02 AM CDT CLINICAL HISTORY: 79 years, Male, Aphasia;TIA COMPARISON: None PROCEDURE: Multiple transaxial tomograms from the aortic arch through the brain were performed after administrat ion of large bolus of IV contrast for complete opacification of the carotid arteries and intracranial vessels. Subsequent 2-D and 3-D multiplanar reformats, volume rendering technique and maximum intensity projec tion images were generated and reviewed An individualized dose optimization technique, Automated Exposure Control, was utilized for the perfo rmed procedure. CAROTID STENOSIS REFERENCE USING NASCET CRITERIA: % ICA stenosis = (1 - narrowest ICA diameter/diamet er of distal cervical ICA) x 100. Mild - <50% stenosis. Moderate - 50-69% stenosis. Severe - 70-94% stenosis. Near occlusion - 95-99% stenosis. Occluded - 100% stenosis. FINDINGS: Ascending aorta: The aortic arch was not imaged. There is left vertebral artery dominance with smal l caliber of the right vertebral artery. No great vessel origin stenosis is identified. Right carotid artery: Normal opacification is demonstrated within the right common carotid artery and at the carotid bifurcation. Minimal intimal opacification. The carotid bulb peripheral thickening with multiple surgical clips perhaps corresponding to previous right endarterectomy. No evidence for stenosis. The proximal, mid and distal portion of the right internal carotid artery demonstrated to be patent. No evidence for stenosis and/or occlusion. Left carotid artery: Normal opacification is demonstrated within the left common carotid artery and a t the carotid bifurcation. The carotid bulb demonstrate minimal peripheral atheromatous plaque. No evidence for stenosis. The proximal, mid and distal portion of the left internal carotid artery demon strated to be patent. No evidence for stenosis and/or occlusion. Surgical clips within the left lateral neck and absence of the soft tissue suggest the possibility of radical neck dissection Intracranial circulation: Intracranial portions of the internal carotid arteries the cavernous sinus portions demonstrates the presence of minimal peripheral atheromatous plaque with no evidence for stenosis and/or aneurysm. There is abrupt cut off of the midportion of the right M2 segment at the level of the sylvian fissure on MR series #602 image 106/179 and axial maximum intensity projection images CT series #509 image 27/ corresponding to most likely thrombus. There is hypoplastic/absent right A1 segment. Otherwise the anterior cerebral arteries, left middle c erebral arteries and its branches demonstrate normal opacification with no evidence for stenosis, occlusion and/or aneurysm. There is normal venous drainage with no evidence for sinus vein thrombosis . Vertebrobasilar system: The posterior circulation demonstrate left vertebral artery dominance with no evidence for stenosis and/or evidence for significant dissection. There are vascular artery and DIRECT[employer] CASE demonstrate to be normal with no evidence for aneurysm and/or occlusion. The brain parenchyma demonstrate mild brain atrophy. Findings suggest perhaps slight decrease perfusi on/flow within the recently described area of hypodensity within the right posterior temporal/parietal lobe. No evidence for mass effect and/or midline shift. There is no evidence for ab normal parenchymal enhancement. The skull base and intracranial structures demonstrate to be within normal limits. Lung apex: No gross abnormalities are noted within the apices. IMPRESSION: Abrupt cut off of the midportion of the right M2 segment at the level of the Sylvian fissure correspo nding to most likely thrombus. Hypoplastic/absent right A1 segment. No evidence for stenosis and/or aneurysm of the intracranial vessels. Left vertebral artery dominance with small caliber of the right vertebral artery. Postsurgical changes within the left lateral neck and absence of the soft tissue suggest the possibil ity of radical neck dissection. Surgical clips within the right internal carotid artery perhaps just in the possibility of previous e ndarterectomy. Electronically signed by: Gaurav Jolly MD 05/26/2024 03:10 AM CDT Due to temporary technical issues with the PACS/[employer] reporting system, reports are being javon d by the in-house radiologist without review as a courtesy to ensure prompt reporting the interpreting radiologist is fully responsible for the content of the report. Transcribed Date/Time: 05/26/2024 4:17 AM
[2024-05-26 05:21] VITALS: TEMP 97.8; O2SAT 100
[2024-05-26 05:23] VITALS: BP 171/102
--- NOTE | 2024-05-28 11:25 | EKG ---
Test Date: 2024-05-26 Test Time: 02:32:44 [employer]: AF MEASUREMENT RESULTS: Intervals: Rate: 75 [place]: QRSD: 88 QT: 420 QTc: 469 [place]: P: [place]: QRS: 62 T: 19 INTERPRETIVE STATEMENTS: Atrial fibrillation with PVCs Septal infarct, age undetermined Abnormal ECG Compared to ECG 04/29/2023 10:31:17 Myocardial infarct finding still present Electronically Signed On 05-28-24 11:20:27 CDT by Yunior Herman
== END 2024-05-26 04:58 | disposition short-term general hospital (02) ==
LOC: ER 01:56
DX: I63.9 Cerebral infarction, unspecified (principal); R41.82 Altered mental status, unspecified; I48.91 Unspecified atrial fibrillation; Z79.01 Long term (current) use of anticoagulants; I10 Essential (primary) hypertension; R29.705 NIHSS score 5
CPT/HCPCS: 85025; 80048; 36415; 83735; 85610; 82947; 80076; 84484; 83690; 83880; 86140; 70496; 70498; 70450; 71045; Q9967; J7030; 93005; 96361; 96374; 99285

== ENCOUNTER 2024-06-08 21:32 | Emergency (ER) | payer OTHER ==
--- NOTE | 2024-06-08 22:33 | RAD REPORT ---
EXAM: CT brain without contrast HISTORY: fall COMPARISON: 05/26/2024 TECHNIQUE: Multiple contiguous axial images were obtained and a CT of the brain without contrast. Sag ittal and coronal reformats were performed. One or more of the following dose reduction techniques were used: Automated exposure control, adjust ment of the mA and/or kV according to patient size, and/or iterative reconstruction. FINDINGS: Evidence of recent right-sided craniotomy. Areas of moderate size diminished density are seen in the right temporoparietal region is present. This most likely is related to prior infarction. Subtle areas of increased density within this area likely minimal hemorrhagic conversion of prior infarct. N o acute hemorrhage, hydrocephalus or significant extra-axial fluid collection. No midline shift evident. The calvarium is intact. The visualized paranasal sinuses and mastoid air cells are essentially clear . IMPRESSION: Moderate area of diminished density is seen in the right temporoparietal region with recent right-geovanna ed craniotomy as described. No acute intracranial findings seen. EXAM: CT of the cervical spine without contrast HISTORY: Neck pain, injury fall TECHNIQUE: Multiple contiguous axial images were obtained in a CT of the cervical spine without contr ast. Sagittal and coronal reformats were performed. FINDINGS: The vertebral bodies demonstrate normal height and alignment. No evidence of acute fracture or subluxation.. Moderate lower cervical degenerative changes. No prevertebral soft tissue swelling is seen. Bilateral carotid atherosclerosis. The posterior facets are well aligned. Normal alignment of the skull base with the cervical spine is seen. The lung apices are unremarkable. IMPRESSION: No evidence of acute osseous abnormality of the cervical spine. Moderate lower cervical spondylosis.
--- NOTE | 2024-06-08 23:46 | EDPHYS ---
Physician Documentation [facility] Name: Ryland Toney Age: 79 yrs Sex: Male : 1945 Arrival Date: 06/08/2024 Time: 21:32 Bed 2 Private MD: ED Physician Dean Zuniga HPI: 06/08 21:58 This 79 yrs old Male presents to ER via Unassigned with complaints of Fall Injury. sp3 21:58 79-year-old male with history of recent cerebral infarction currently on Xarelto sp3 presents from [facility] for chief complaint mechanical fall low level and low force with possible head injury. EMS states [facility] sent patient in "out of an abundance of caution". No bleeding or signs of injury noted. ROS, history and physical limited secondary to patient's baseline status.. Historical: - Allergies: 21:34 No Known Allergies; vc1 - PMHx: 21:34 Atrial Fib; CA - Head and Neck; Diabetes - NIDDM; Hypertension; Hypothyroidism; vc1 inguinal hernia - right; osteoarthritis; PROSTATE CA; dysphagia; - PSHx: 21:34 brain sx (PROSTATE CA); vc1 - Immunization history:: Adult Immunizations up to date. - Infectious Disease History:: Denies. - Social history:: Smoking status: unknown. ROS: 21:59 Unable to obtain ROS due to baseline dementia, sp3 Exam: 21:59 Constitutional: This is a well developed, well nourished patient who is awake, alert, sp3 and in no acute distress. Head/Face: Normocephalic, atraumatic. Eyes: Pupils equal round and reactive to light, extra-ocular motions intact. Lids and lashes normal. Conjunctiva and sclera are non-icteric and not injected. Cornea within normal limits. Periorbital areas with no swelling, redness, or edema. ENT: Nares patent. No nasal discharge, no septal abnormalities noted. External auditory canals are clear. Oropharynx with no redness, swelling, or masses, exudates, or evidence of obstruction, uvula midline. Mucous membranes moist. Neck: Trachea midline, no thyromegaly or masses palpated, and no cervical lymphadenopathy. Supple, full range of motion without nuchal rigidity, or vertebral point tenderness. No Meningismus. Chest/axilla: Normal chest wall appearance and motion. Nontender with no deformity. No lesions are appreciated. Cardiovascular: Regular rate and rhythm with a normal S1 and S2. No gallops, murmurs, or rubs. Normal PMI, no JVD. No pulse deficits. Respiratory: Lungs have equal breath sounds bilaterally, clear to auscultation and percussion. No rales, rhonchi or wheezes noted. No increased work of breathing, no retractions or nasal flaring. Abdomen/GI: Soft, non-tender, with normal bowel sounds. No distension or tympany. No guarding or rebound. No evidence of tenderness throughout. Back: No spinal tenderness. No costovertebral tenderness. Full range of motion. Skin: Warm, dry with normal turgor. Normal color with no rashes, no lesions, and no evidence of cellulitis. MS/ Extremity: Pulses equal, no cyanosis. Neurovascular intact. Full, normal range of motion. Psych: Awake, alert, with orientation to person, place and time. Behavior, mood, and affect are within normal limits. 21:59 Unable to obtain exam due to baseline dementia, Vital Signs: 21:34 BP 180 / 94; Pulse 80; Resp 14; Pulse Ox 100% ; vc1 06/09 00:25 BP 188 / 88; Pulse 74; Resp 16; Temp 97.4; Pulse Ox 100% ; vc1 MDM: 06/08 21:39 Medical Screening Exam initiated sp3 21:59 Data reviewed: vital signs, nurses notes, old medical records, radiologic studies. ED sp3 course: No signs of injury noted. Will obtain CT scan of the head and C-spine and discharge back to [facility] if negative.. 23:04 ED course: Scans negative for any acute findings. Will discharge patient back to [facility] at this time.. 06/08 23:46 Order name: Head C Spine Mpr Wo Con; Complete Time: 00:07 EDMS Administered Medications: 06/09 00:08 Drug: Ativan IVP 2 mg IVP once Route: IVP; Site: right antecubital; dd2 00:27 Follow up: Response: No adverse reaction; Marked relief of symptoms vc1 Disposition Summary: 06/08/24 23:21 Discharge Ordered Notes: Location: Home sp3 Condition: Stable sp3 Diagnosis - Closed head injury, fall sp3 Followup: sp3 - With: Private Physician - When: Upon discharge from the Emergency Department - Reason: Continuance of care Discharge Instructions: - Discharge Summary Sheet sp3 - Fall Prevention in the Home, Adult sp3 Forms: - Medication Reconciliation Form sp3 - Antibiotic Education sp3 - Prescription Opioid Use sp3 - Patient Portal Instructions sp3 - Leadership Thank You Letter sp3 Signatures: Dispatcher [employer] EDMS Dean Zuniga MD MD sp3 Codi Tracey RN RN vc1 YUDITH LOBO RN RN dd2 Corrections: (The following items were deleted from the chart) 06/08 23:46 23:46 CT HEAD,C-SPINT W/O ordered. EDMS EDMS 06/09 00:06 06/08 23:51 Head C Spine MPR Wo Con+CT.RAD.BRZ ordered. EDMS EDMS
--- NOTE | 2024-06-08 23:46 | ER ---
Nurse's Notes [facility] Name: Ryland Toney Age: 79 yrs Sex: Male : 1945 Arrival Date: 06/08/2024 Time: 21:32 Bed 2 Private MD: Diagnosis: Closed head injury, fall Presentation: 06/08 21:34 Chief complaint: EMS states: pt rolled off bed (1 ft from ground) onto floor. Nursing vc1 home wants him to be scanned due to recent brain sx. 21:34 Coronavirus screen: Client denies travel out of the [place] in the last 14 days. At this vc1 time, the client does not indicate any symptoms associated with coronavirus-19. Ebola Screen: Patient negative for fever greater than or equal to 101.5 degrees Fahrenheit, and additional compatible Ebola Virus Disease symptoms Patient denies exposure to infectious person. Patient denies travel to an Ebola-affected area in the 21 days before illness onset. No symptoms or risks identified at this time. Initial Sepsis Screen: Does the patient meet any 2 criteria? No. Patient's initial sepsis screen is negative. Does the patient have a suspected source of infection? No. Patient's initial sepsis screen is negative. Risk Assessment: Do you want to hurt yourself or someone else? Patient reports no desire to harm self or others. Onset of symptoms was June 08, 2024. 21:34 Method Of Arrival: EMS: [facility] vc1 21:34 Acuity: YESIKA 3 vc1 Triage Assessment: 21:34 General: Appears in no apparent distress. comfortable, slender, well groomed, Behavior vc1 is cooperative, restless. Pain: Denies pain. EENT: No deficits noted. No signs and/or symptoms were reported regarding the EENT system. Neuro: Level of Consciousness is awake, obeys commands, confused, Oriented to person, place. Cardiovascular: No deficits noted. Denies chest pain, Capillary refill < 3 seconds Patient's skin is warm and dry. Respiratory: Airway is patent Respiratory effort is even, unlabored, Respiratory pattern is regular, symmetrical, Breath sounds are clear bilaterally. GI: No deficits noted. No signs and/or symptoms were reported involving the gastrointestinal system. : No deficits noted. No signs and/or symptoms were reported regarding the genitourinary system. Derm: Skin is fragile, is thin, Skin is dry, Skin is normal. Musculoskeletal: Circulation, motion, and sensation intact. Range of motion: intact in all extremities. 21:34 Derm: healed scar with florencia to top of head. vc1 Historical: - Allergies: 21:34 No Known Allergies; vc1 - PMHx: 21:34 Atrial Fib; CA - Head and Neck; Diabetes - NIDDM; Hypertension; Hypothyroidism; vc1 inguinal hernia - right; osteoarthritis; PROSTATE CA; dysphagia; - PSHx: 21:34 brain sx (PROSTATE CA); vc1 - Immunization history:: Adult Immunizations up to date. - Infectious Disease History:: Denies. - Social history:: Smoking status: unknown. Screenin:34 [facility] ED Fall Risk Assessment (Adult) History of falling in the last 3 months, vc1 including since admission Yes- fall prone (multiple falls) (3 pts) Confusion or Disorientation Yes (5 pts) Intoxicated or Sedated No (0 pts) Impaired Gait Yes (1 pt) Mobility Assist Device Used Yes (1 pt) Altered Elimination Yes (1 pt) Score/Fall Risk Level 0 - 2 = Low Risk Oriented to surroundings, Maintained a safe environment, Educated pt \T\ family on fall prevention, incl call for assistance when getting out of bed. Abuse screen: Denies threats or abuse. Nutritional screening: No deficits noted. Tuberculosis screening: No symptoms or risk factors identified. Vital Signs: 21:34 BP 180 / 94; Pulse 80; Resp 14; Pulse Ox 100% ; vc1 06/09 00:25 BP 188 / 88; Pulse 74; Resp 16; Temp 97.4; Pulse Ox 100% ; vc1 ED Course: 06/08 21:34 Patient arrived in ED. [id number] 21:34 Arm band placed on right wrist. vc1 21:34 Patient has correct armband on for positive identification. Bed in low position. Call vc1 light in reach. Pulse ox on. NIBP on. 21:34 Provided Education on: fall safety. vc1 21:34 Maintain EMS IV. Dressing intact. Good blood return noted. Site clean \T\ dry. Gauge \T\ vc 1 site: 20 right forearm. 21:38 Dean Zuniga MD is Attending Physician. sp3 22:05 Triage completed. vc1 23:47 Head C Spine Mpr Wo Con In Process Unspecified. EDMS 06/09 00:22 No provider procedures requiring assistance completed. IV discontinued, intact, vc1 bleeding controlled, No redness/swelling at site. Pressure dressing applied. Administered Medications: 00:08 Drug: Ativan IVP 2 mg IVP once Route: IVP; Site: right antecubital; dd2 00:27 Follow up: Response: No adverse reaction; Marked relief of symptoms vc1 Medication: 00:20 VIS not applicable for this client. vc1 Outcome: 06/08 23:21 Discharge ordered by MD. ferreira 04 00:26 Discharged to [facility] Condition: stable Instructed on discharge instructions, follow up and referral plans. 00:27 Patient left the ED. vc1 Signatures: Dispatcher [employer] EDWV Dean Zuniga MD MD sp3 Genet Bailey Vanessa RN RN vc1 YUDITH LOBO RN RN dd2
[2024-06-09] MEDS ORDERED: LORazepam 2 MG/ML VIAL ONE (00:04)
[2024-06-09 00:32] VITALS: O2SAT 100
[2024-06-09 00:33] VITALS: BP 188/88; TEMP 97.4
== END 2024-06-09 00:27 | disposition home or self-care (01) ==
LOC: ER 21:32
DX: S09.90XA Unspecified injury of head, initial encounter (principal); W18.30XA Fall on same level, unspecified, initial encounter; Z79.01 Long term (current) use of anticoagulants; I48.91 Unspecified atrial fibrillation; E11.9 Type 2 diabetes mellitus without complications; I10 Essential (primary) hypertension; Z86.73 Personal history of transient ischemic attack (TIA), and cerebral infarction without residual deficits; Z85.46 Personal history of malignant neoplasm of prostate
CPT/HCPCS: 70450; 72125; 96374; 99284